=== PATIENT | female | born 1955 | race African-American/Black ===

== ENCOUNTER 2016-06-28 17:09 | Emergency (ER) | payer OTHER ==
[~2016-06-28] VITALS: Ht 162.6 cm; Wt 104.3 kg
[2016-06-28 17:16] VITALS: BP 185/101
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
[2016-06-28] MEDS ORDERED: ACETAMINOPHEN 500 MG TABLET PO ONE (18:45)
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
== END 2016-06-28 19:35 | disposition home or self-care (01) ==
LOC: ER 18:43
DX: S13.4XXA Sprain of ligaments of cervical spine, initial encounter (principal); S23.3XXA Sprain of ligaments of thoracic spine, initial encounter; J90 Pleural effusion, not elsewhere classified; I10 Essential (primary) hypertension; E78.00 Pure hypercholesterolemia, unspecified; E11.9 Type 2 diabetes mellitus without complications; Z90.49 Acquired absence of other specified parts of digestive tract; Z90.710 Acquired absence of both cervix and uterus; Z88.5 Allergy status to narcotic agent; V48.4XXA Person boarding or alighting a car injured in noncollision transport accident, initial encounter; Y93.89 Activity, other specified; Y99.8 Other external cause status; Y92.488 Other paved roadways as the place of occurrence of the external cause
CPT/HCPCS: 72125; 72128; 99284-25

== ENCOUNTER 2018-04-14 21:36 | Inpatient (IN) | payer MEDICARE, OTHER ==
[~2018-04-14] VITALS: Ht 162.6 cm; Wt 103.4 kg
[2018-04-14 22:27] LABS: BASO % 1 % (0-3); EOS # 0.1 x10^3/uL (0.0-0.7); EOS % 2 % (0-3); HEMOGLOBIN 9.9 g/dL (12.0-15.5); LYMPH # 0.4 x10^3/uL (1.0-4.8); LYMPH % 6 % (24-48); MEAN CORPUSCULAR HEMOGLOBIN 29 pg (25-35); MEAN CORPUSCULAR HGB CONC 33 g/dL (31-37); MEAN CORPUSCULAR VOLUME 88 fL (79-100); MONO # 0.5 x10^3/uL (0.0-1.1); MONO % 7 % (0-9); NEUT # 5.8 x10^3uL (1.8-7.7); NEUT % 85 % (31-73); PLATELET COUNT 171 x10^3/uL (140-400); RED BLOOD COUNT 3.43 x10^6/uL (3.50-5.40); RED CELL DISTRIBUTION WIDTH 18.2 % (11.5-14.5); WHITE BLOOD COUNT 6.8 x10^3/uL (4.0-11.0)
[2018-04-14] MEDS ORDERED: IV NORMAL SALINE 500ML BAG 500 ML IV ONE (22:30)
[2018-04-14] MEDS ORDERED: LIDOCAINE/EPI/TETRACAINE TOPICAL GEL 3 ML. TP ONE (22:30)
[2018-04-14] MEDS ORDERED: ACETAMINOPHEN 500 MG TABLET PO ONE (22:30)
--- NOTE | 2018-04-14 23:19 | RAD ---
CHEST AP ONLY History: cough, fever Comparison: November 08, 2006 Findings: Single view of the chest is submitted. There is chronic unchanged blunting of the right costophrenic sulcus. There is no new infiltrate, pleural fluid, pneumothorax. Heart size is stable, within normal limits. Impression: 1. No acute radiographic abnormality is identified. Electronically signed by: Reymundo Padilla MD (04/14/2018 11:16 PM) [facility]
--- NOTE | 2018-04-14 23:23 | PHYS DOC ---
Past Medical History Past Medical History: Anxiety, Diabetes-Type II, High Cholesterol, Hypertension , Kidney Infection Additional Past Medical Histor: KIDNEY DISEASE (LEONIDES RODRIGUEZ APRN) Past Surgical History: Appendectomy, Cholecystectomy, Hysterectomy Additional Past Surgical Histo: RIGHT BREAST CA W/ LUMPECTOMY, RIGHT LUNG SX FOR TUMOR (LEONIDES RODRIGUEZ APRN) Alcohol Use: Rarely Drug Use: None (LEONIDES RODRIGUEZ APRN) Adult General Chief Complaint Chief Complaint: DIALYSIS PROBLEM HPI HPI 62-year-old female presents to ER via EMS from her dialysis center. Patient had had dialysis and after her dialysis shunt was de-accessed patient had continued bleeding at the site. Staff had applied direct pressure for approximately 2 hours however her bleeding continued so patient was sent to the ER for evaluation. Pt reports she has had some dizziness over past couple of hours. She reports she has had PUENTE denies vision changes, eye pain, or tinnitus. She is on daily Coumadin. Pt has 100.6 temp at triage- she reports in past 2 days she has had intermittent fever, nonprod. cough, and generalized fatigue. She reports when she has had fever she has had intermittent PUENTE. She denies urinary sxs. (LEONIDES RODRIGUEZ APRN) Review of Systems Review of Systems Constitutional: Reports fever/chills and generalized fatigue for past 2 days Eyes: Denies change in visual acuity, redness, or eye pain [] HENT: Denies nasal congestion or sore throat [] Respiratory: Denies shortness of breath. Reports nonprod. cough Cardiovascular: Denies CP/palpitations GI: Denies abdominal pain, nausea, vomiting, bloody stools or diarrhea [] : Denies dysuria or hematuria [] Musculoskeletal: Denies back/neck pain or joint pain [] Integument: Denies rash or skin lesions [] Neurologic: Denies focal weakness or sensory changes. Reports diffuse PUENTE with dizziness during position changes Endocrine: Denies polyuria or polydipsia [] All other systems were reviewed and found to be within normal limits, except as documented in this note. (LEONIDES RODRIGUEZ APRN) Current Medications Current Medications Current Medications Medications (Trade) Dose Ordered Sig/Kathleen Start Time Stop Time Status Last Admin Dose Admin Acetaminophen (Tylenol) 1,000 mg 1X ONCE 04/14/18 22:30 04/14/18 22:31 DC 04/14/18 22:14 1,000 MG Lidocaine/ Epinephrine (Let Topical) 3 ml 1X ONCE 04/14/18 22:30 04/14/18 22:31 DC 04/14/18 22:14 3 ML Sodium Chloride 500 ml @ 500 mls/hr 1X ONCE 04/14/18 22:30 04/14/18 23:29 DC 04/14/18 22:51 500 MLS/HR (JESSICA SALCEDO DO) Allergies Allergies Allergies Coded Allergies Type Severity Reaction Last Updated Verified oxycodone Allergy Intermediate Itching 06/28/16 Yes (JESSICA SALCEDO DO) Physical Exam Physical Exam Constitutional: Well developed, well nourished, no acute distress, non-toxic appearance. Fatigued appearance. Clear speech and answering questions appropr. HENT: Normocephalic, atraumatic, bilateral ears normal, mucous membranes pink/ dry, mild pharyngeal erythema without swelling, no oral exudates, nose normal. [ ] Eyes: PERRLA, EOMI, conjunctiva normal, no discharge. [] Neck: Normal range of motion, no tenderness- no nuchal rigidity, supple, no stridor. [] Cardiovascular: Heart rate regular rhythm, no murmur [] Lungs & Thorax: Bilateral breath sounds clear to auscultation- diminished in bases. Resp. equal/nonlabored Abdomen: Bowel sounds normal, soft/obese- no distention/rigidity; no tenderness Skin: Warm, dry, no erythema, no rash. [] Back: No tenderness, no CVA tenderness. Full ROM Extremities: No tenderness, no cyanosis, no clubbing, ROM intact, no edema. Dialysis fistula lt upper arm with active bleeding at site- palp. thrill at site. 2+ radial bilat. Neurologic: Alert and oriented X 3, normal motor function, normal sensory function, no focal deficits noted. [] Psychologic: Affect normal, judgement normal, mood normal. [] (REFFITT,LEONIDES Trejo APRN) Physical Exam Constitutional: Well developed, well nourished, no acute distress Extremities: AV fistula to left upper arm, positive thrill, small anterior active bleeding from HD puncture site, compressible. (JESSICA SALCEDO DO) Current Patient Data Vital Signs Vital Signs Date Time Temp Pulse Resp B/P (MAP) Pulse Ox O2 Delivery O2 Flow Rate FiO2 04/14/18 21:44 107 155/74 (101) Room Air 04/14/18 21:36 100.6 20 91 100.6 (JESSICA SALCEDO DO) Lab Values Laboratory Tests Test 04/14/18 22:20 White Blood Count 6.8 x10^3/uL (4.0-11.0) Red Blood Count 3.43 x10^6/uL (3.50-5.40) L Hemoglobin 9.9 g/dL (12.0-15.5) L Hematocrit 30.0 % (36.0-47.0) L Mean Corpuscular Volume 88 fL (79-100) Mean Corpuscular Hemoglobin 29 pg (25-35) Mean Corpuscular Hemoglobin Concent 33 g/dL (31-37) Red Cell Distribution Width 18.2 % (11.5-14.5) H Platelet Count 171 x10^3/uL (140-400) Neutrophils (%) (Auto) 85 % (31-73) H Lymphocytes (%) (Auto) 6 % (24-48) L Monocytes (%) (Auto) 7 % (0-9) Eosinophils (%) (Auto) 2 % (0-3) Basophils (%) (Auto) 1 % (0-3) Neutrophils # (Auto) 5.8 x10^3uL (1.8-7.7) Lymphocytes # (Auto) 0.4 x10^3/uL (1.0-4.8) L Monocytes # (Auto) 0.5 x10^3/uL (0.0-1.1) Eosinophils # (Auto) 0.1 x10^3/uL (0.0-0.7) Basophils # (Auto) 0.0 x10^3/uL (0.0-0.2) Prothrombin Time 26.0 SEC (11.7-14.0) H Prothrombin Time INR 2.4 (0.8-1.1) H PTT 39 SEC (24-38) H Laboratory Tests 04/14/18 22:20 (JESSICA SALCEDO DO) EKG EKG [] (LEONIDES RODRIGUEZ APRN) Radiology/Procedures Radiology/Procedures PROCEDURE: CHEST AP ONLY CHEST AP ONLY History: cough, fever Comparison: November 08, 2006 Findings: Single view of the chest is submitted. There is chronic unchanged blunting of the right costophrenic sulcus. There is no new infiltrate, pleural fluid, pneumothorax. Heart size is stable, within normal limits. Impression: 1. No acute radiographic abnormality is identified. Electronically signed by: Vernon Yu MD (04/14/2018 11:16 PM) [facility] DICTATED and SIGNED BY: VERNON YU MD DATE: 04/14/18 8289 (REFFITTLEONIDES APRN) Course & Med Decision Making Course & Med Decision Making Pertinent Labs and Imaging studies reviewed. (See chart for details) On arrival pt had active bleeding from lt medial side of mid upper arm at her dialysis fistula site. Dr Salcedo was at bedside and direct pressure was applied for 10-15 minutes. With ongoing bleeding following direct pressure- a VPad was applied to site with pressure drsg and again direct pressure was applied. Site continued to bleed after another approx. 10-15 pressure application. After those attempts unsuccessful for stopping the active bleeding 1cc of LET was applied to another VPad and initial drsg was removed the new pad with LET was applied again with a pressure drsg and direct pressure for approx. 10 min. After this 10 minutes drsg remained dry with no blood soaking thru. Fistula clamp was applied and pt was monitored closely. Pt had c/o PUENTE and was found to have temp. of 100.6 on arrival. She reported flu like illness for past 2 days with fatigue, nonprod. cough, fever, and intermittent PUENTE. She denied CP/SOA/abd pain or N/V/D. She was given dose of tylenol. She had reported while at dialysis she had some intermittent dizziness and felt more fatigued. She has had no confusion or change in MS while in ER. Radial pulse remained 2+ bilat. with no swelling in extremities. With pt having fever and feeling fatigue/dizzy - IV was started and labs were drawn. With cough complaint chest was obtained. 2305: On reevaluation patient has had no bleeding through the dressing after 15min. so clamp was removed from dsrg site and pressure wrap was removed to assess site. Small amt of dried blood was on VPad- assessed under edges of VPad with no findings of skin discoloration or bleeding with removal of pressure wrap. Gauze was placed on top of VPad and Coban wrap applied. Pt has 2+ radial bilat. She remains A&Ox3 and reports with PO fluids and tylenol she is feeling better. Pt was neg. for flu. Chest xray with no acute findings. Labs with H&H at 9.9/30.0- no previous results in pt's records. INR 2.4. Although bleeding has stopped discussed admission for further monitoring- pt lives alone and although does feel sxs have improved since receiving flds/tylenol she does continue to feel fatigued. She is denying dizziness currently and has been ambulatory to bathroom with steady gait. She reports PUENTE significantly improved. Will admit to hospitalist services for further care/monitoring and repeat labs in morning. (LEONIDES RODRIGUEZ APRN) Dragon Disclaimer Dragon Disclaimer This electronic medical record was generated, in whole or in part, using a voice recognition dictation system. (LEONIDES RODRIGUEZ APRN) Departure Departure Impression: Primary Impression: Bleeding from dialysis shunt Additional Impression: Fever Disposition: ADMITTED INPATIENT Admitting Physician: Other (Dr. Murphy) (LEONIDES RODRIGUEZ APRN) Condition: STABLE Referrals: UNKNOWN PCP NAME (PCP) Scripts Oseltamivir Phosphate (TAMIFLU) 30 Mg Capsule 30 MG PO QMWF for INFLUENZA A for 5 Days, #5 CAP Take only after dialysis every other day Prov: BRUCE PARK MD 04/15/18 Attending Signature Attending Signature I have personally interviewed and examined the patient. All charts, labs, and imaging studies were reviewed. I agree with the PA/CONFERENCE DIRECTOR's findings, exam, and plan. (JESSICA SALCEDO DO) Problem Qualifiers LEONIDES RODRIGUEZ APRN Apr 14, 2018 23:23 JESSICA SALCEDO DO Apr 16, 2018 03:39
[2018-04-14 23:29] LABS: CREATININE 2.6 mg/dL (0.6-1.0); GFR 22.6; POTASSIUM 3.7 mmol/L (3.5-5.1)
[2018-04-14] MEDS ORDERED: fentaNYL PF VIAL 100 MCG/2 ML VIAL IV PRN (23:30)
[2018-04-14 23:43] LABS: ALBUMIN 3.3 g/dL (3.4-5.0); ALBUMIN/GLOBULIN RATIO 0.8 (1.0-1.7); TOTAL BILIRUBIN 0.9 mg/dL (0.2-1.0); TOTAL PROTEIN 7.2 g/dL (6.4-8.2)
[2018-04-14 23:53] LABS: INFLUENZA A PATIENT NEGATIVE (NEGATIVE); INFLUENZA B PATIENT NEGATIVE (NEGATIVE)
[2018-04-15] VITALS (7 sets, daily range): BP systolic 106–149; BP diastolic 54–79
[2018-04-15] MEDS ORDERED: BENZONATATE 100 MG CAPSULE. PO ONE (01:00)
[2018-04-15] MEDS ORDERED: WARF7.5T48 PO (03:20)
[2018-04-15] MEDS ORDERED: INSU100C SQ (03:20)
[2018-04-15] MEDS ORDERED: ASPI-630 PO (03:20)
[2018-04-15] MEDS ORDERED: RENAPLEX PO (03:20)
[2018-04-15] MEDS ORDERED: INSU100I13 SQ (03:20)
[2018-04-15] MEDS ORDERED: CARV12.511 PO (03:20)
[2018-04-15] MEDS ORDERED: ATOR40TA59 PO (03:20)
[2018-04-15] MEDS ORDERED: ONDANSETRON PF 4 MG/2 ML VIAL. IV PRN (03:30)
[2018-04-15] MEDS ORDERED: DEXTROSE 50% 25 GM / 50ML DISP.SYRIN. IV PRN (03:30)
[2018-04-15] MEDS: guaiFENesin DM 200MG/20MG 10 ML SYRUP PO PRN ×2 (03:31→13:35)
--- NOTE | 2018-04-15 03:38 | NUR ---
arrived to unit room 438 at 0100 from ED , admit care done, no bleeding noted ta left upper arm AV shunt noted at this time. Persistent dry cough noted, Dr Murphy notified with new order made. Pt informed of new order and educated on new meds done, pt verbalized understanding to poc.
[2018-04-15 05:42] LABS: BASO % 1 % (0-3); EOS # 0.1 x10^3/uL (0.0-0.7); EOS % 2 % (0-3); LYMPH # 0.5 x10^3/uL (1.0-4.8); LYMPH % 9 % (24-48); MEAN CORPUSCULAR HEMOGLOBIN 28 pg (25-35); MEAN CORPUSCULAR HGB CONC 32 g/dL (31-37); MEAN CORPUSCULAR VOLUME 87 fL (79-100); MONO # 0.6 x10^3/uL (0.0-1.1); MONO % 10 % (0-9); NEUT # 4.9 x10^3uL (1.8-7.7); NEUT % 79 % (31-73); PLATELET COUNT 156 x10^3/uL (140-400); RED CELL DISTRIBUTION WIDTH 18.4 % (11.5-14.5); WHITE BLOOD COUNT 6.1 x10^3/uL (4.0-11.0)
[2018-04-15 06:07] LABS: CALCIUM 8.3 mg/dL (8.5-10.1); CREATININE 3.2 mg/dL (0.6-1.0); GFR 17.8; POTASSIUM 4.3 mmol/L (3.5-5.1)
--- NOTE | 2018-04-15 08:47 | PDOC1 ---
History and Physical Date of Admission Date of Admission DATE: 04/15/18 TIME: 08:41 Identification/Chief Complaint Chief Complaint Left dialysis shunt malfunction Source Source: Caregiver, Chart review, Patient History of Present Illness History of Present Illness 62-year-old female presents to ER via EMS from her dialysis center. Patient had had dialysis and after her dialysis shunt was reaccessed patient had continued bleeding at the site. Staff had applied direct pressure for approximately 2 hours however her bleeding continued so patient was sent to the ER for evaluation. Pt reports she has had some dizziness over past couple of hours. She reports she has had PUENTE denies vision changes, eye pain, or tinnitus. She is on daily Coumadin. Pt has 100.6 temp at triage- she reports in past 2 days she has had intermittent fever, nonprod. cough, and generalized fatigue. She reports when she has had fever she has had intermittent PUENTE. She denies urinary sxs. Fistula clamp was applied and pt was monitored closely. Pt had c/o PUENTE and was found to have temp. of 100.6 on arrival. She reported flu like illness for past 2 days with fatigue, nonprod. cough, fever, and intermittent PUENTE. She denied CP/ SOA/abd pain or N/V/D. She was given dose of tylenol. She had reported while at dialysis she had some intermittent dizziness and felt more fatigued. She has had no confusion or change in MS while in ER. Radial pulse remained 2+ bilat. with no swelling in extremities. With pt having fever and feeling fatigue/dizzy - IV was started and labs were drawn. With cough complaint chest was obtained. On reevaluation patient has had no bleeding through the dressing after 15min. so clamp was removed from dsrg site and pressure wrap was removed to assess site. Small amt of dried blood was on VPad- assessed under edges of VPad with no findings of skin discoloration or bleeding with removal of pressure wrap. Gauze was placed on top of VPad and Coban wrap applied. Pt has 2+ radial bilat. She remains A&Ox3 and reports with PO fluids and tylenol she is feeling better. Pt was neg. for flu. Chest xray with no acute findings. Labs with H&H at 9.9/ 30.0 INR 2.4 She still has fever this morning 100.7F and relates to me she had sudden onset symptoms 48 hours ago of myalgias and had a fever of 100.6F at home with congestion, cough, coryza. Past Medical History Cardiovascular: HTN GI: No pertinent hx Heme/Onc: Anemia NOS Hepatobiliary: No pertinent hx Psych: No pertinent hx Rheumatologic: No pertinent hx Infectious disease: No pertinent hx ENT: No pertinent hx Renal/: Chronic renal failure Endocrine: No pertinent hx Dermatology: No pertinent hx Past Surgical History Past Surgical History: Other (left AV shunt) Family History Family History: Hypertension Social History Smoke: No ALCOHOL: none Drugs: None Current Medications Current Medications Current Medications Acetaminophen (Tylenol) 1,000 mg 1X ONCE PO Last administered on 04/14/18 22: 14; Start 04/14/18 at 22:30; Stop 04/14/18 at 22:31; Status DC Lidocaine/ Epinephrine (Let Topical) 3 ml 1X ONCE TP Last administered on 22:14; Start 04/14/18 at 22:30; Stop 04/14/18 at 22:31; Status DC Sodium Chloride 500 ml @ 500 mls/hr 1X ONCE IV Last administered on 04/14/18at 22:51; Start 04/14/18 at 22:30; Stop 04/14/18 at 23:29; Status DC Fentanyl Citrate (Fentanyl 2ml Vial) 25 mcg PRN Q3HRS PRN IV SEVERE PAIN; Start 04/14/18 at 23:30; Stop 04/15/18 at 23:29 Acetaminophen (Tylenol) 650 mg PRN Q4HRS PRN PO FEVER; Start 04/14/18 at 23:30; Stop 04/15/18 at 23:29 Benzonatate (Tessalon Perle) 100 mg 1X ONCE PO Last administered on 04/15/18at 02:14; Start 04/15/18 at 01:00; Stop 04/15/18 at 01:01; Status DC Guaifenesin (Robitussin Dm) 10 ml PRN Q4HRS PRN PO COUGH 1ST CHOICE Last administered on 04/15/18 03:31; Start 04/15/18 at 03:30 Ondansetron HCl (Zofran) 4 mg PRN Q6HRS PRN IV NAUSEA/VOMITING 1ST CHOICE Last administered on 04/15/18at 03:31; Start 04/15/18 at 03:30 Insulin Human Lispro (HumaLOG) 0-7 UNITS TIDWMEALS SQ ; Start 04/15/18 at 08:00 Dextrose (Dextrose 50%-Water Syringe) 12.5 gm PRN Q15MIN PRN IV SEE COMMENTS; Start 04/15/18 at 03:30 Active Scripts Active Reported Carvedilol (Carvedilol) 12.5 Mg Tablet 12.5 Mg PO BIDWMEALS Humalog (Insulin Lispro) 100 Unit/1 Ml Cartridge 10 Unit SQ TIDWMEALS [Renaplex 1 tab ] Tab PO DAILY PRN Aspirin 81 Mg Tab.chew 1 Tab PO DAILY Lantus Solostar (Insulin Glargine,Hum.rec.anlog) 100 Unit/1 Ml Insuln.pen 24 Unit SQ QHS Atorvastatin Calcium 40 Mg Tablet 1 Tab PO QHS Coumadin (Warfarin Sodium) 7.5 Mg Tablet 2 Tab PO DAILY Allergies Allergies: Coded Allergies: oxycodone (Verified Allergy, Intermediate, Itching, 06/28/16) codeine (Verified Allergy, Mild, nausea, 04/15/18) ROS General: YES: Fatigue, Malaise; No: Chills, Night Sweats, Appetite, Other PSYCHOLOGICAL ROS: No: Anxiety, Behavioral Disorder, Concentration difficultie , Decreased libido, Depression, Disorientation, Hallucinations, Hostility, Irritablity, Memory difficulties, Mood Swings, Obsessive thoughts, Physical abuse, Sexual abuse, Sleep disturbances, Suicidal ideation, Other Eyes: No Blurry vision, No Decreased vision, No Double vision, No Dry eyes, No Excessive tearing, No Eye Pain, No Itchy Eyes, No Loss of vision, No Photophobia , No Scotomata, No Uses contacts, No Uses glasses, No Other HEENT: No: Heacaches, Visual Changes, Hearing change, Nasal congestion, Nasal discharge, Oral lesions, Sinus pain, Sore Throat, Epistaxis, Sneezing, Snoring, Tinnitus, Vertigo, Vocal changes, Other ALLERGY AND IMMUNOLOGY: No: Hives, Insect Bite Sensitivity, Itchy/Watery Eyes, Nasal Congestion, Post Nasal Drip, Seasonal Allergies, Other Hematological and Lymphatic: No: Bleeding Problems, Blood Clots, Blood Transfusions, Brusing, Night Sweats, Pallor, Swollen Lymph Nodes, Other ENDOCRINE: No: Breast Changes, Galactorrhea, Hair Pattern Changes, Hot Flashes , Malaise/lethargy, Mood Swings, Palpitations, Polydipsia/polyuria, Skin Changes , Temperature Intolerance, Unexpected Weight Changes, Other Breast: No New/Changing Breast Lumps, No Nipple changes, No Nipple discharge, No Other Respiratory: No: Cough, Hemoptysis, Orthopnea, Pleuritic Pain, Shortness of breath, SOB with excertion, Sputum Changes, Stridor, Tachypnea, Wheezing, Other Cardiovascular: No Chest Pain, No Palpitations, No Orthopnea, No Paroxysmal Noc. Dyspnea, No Edema, No Lt Headedness, No Other Gastrointestinal: No Nausea, No Vomiting, No Abdominal Pain, No Diarrhea, No Constipation, No Melena, No Hematochezia, No Other Genitourinary: No Dysuria, No Frequency, No Incontinence, No Hematuria, No Retention, No Discharge, No Urgency, No Pain, No Flank Pain, No Other, No , No , No , No , No , No , No Musculoskeletal: No Gait Disturbance, No Joint Pain, No Joint Stiffness, No Joint Swelling, No Muscle Pain, No Muscular Weakness, No Pain In:, No Swelling In:, No Other Neurological: No Behavorial Changes, No Bowel/Bladder ControlChng, No Confusion , No Dizziness, No Gait Disturbance, No Headaches, No Impaired Coord/balance, No Memory Loss, No Numbness/Tingling, No Seizures, No Speech Problems, No Tremors, No Visual Changes, No Weakness, No Other Skin: No Dry Skin, No Eczema, No Hair Changes, No Lumps, No Mole Changes, No Mottling, No Nail Changes, No Pruritus, No Rash, No Skin Lesion Changes, No Other, No Acne Physical Exam General: Alert, Oriented X3, Cooperative, No acute distress HEENT: Atraumatic, PERRLA, EOMI, Mucous membr. moist/pink Lungs: Clear to auscultation, Normal air movement Heart: S1S2, RRR, no gallops, no murmurs Abdomen: Normal bowel sounds, Soft, No tenderness, No hepatosplenomegaly, No masses Extremities: No clubbing, No cyanosis, No edema, Normal pulses, No tenderness/ swelling, Other (LUE with wrap, good bruit) Skin: No rashes, No breakdown, No significant lesion Neuro: Normal gait, Normal speech, Strength at 5/5 X4 ext, Normal tone, Sensation intact, Cranial nerves 3-12 NL, Reflexes 2+ Psych/Mental Status: Mental status NL, Mood NL Vitals Vitals Vital Signs Date Time Temp Pulse Resp B/P (MAP) Pulse Ox O2 Delivery O2 Flow Rate FiO2 04/15/18 03:48 Room Air 04/15/18 03:19 100.7 95 18 149/79 (102) 95 100.7 Labs Labs Laboratory Tests Test 04/14/18 22:20 04/14/18 23:05 04/14/18 23:15 04/15/18 05:23 White Blood Count 6.8 x10^3/uL (4.0-11.0) 6.1 x10^3/uL (4.0-11.0) Red Blood Count 3.43 x10^6/uL (3.50-5.40) 3.20 x10^6/uL (3.50-5.40) Hemoglobin 9.9 g/dL (12.0-15.5) 9.0 g/dL (12.0-15.5) Hematocrit 30.0 % (36.0-47.0) 28.0 % (36.0-47.0) Mean Corpuscular Volume 88 fL (79-100) 87 fL (79-100) Mean Corpuscular Hemoglobin 29 pg (25-35) 28 pg (25-35) Mean Corpuscular Hemoglobin Concent 33 g/dL (31-37) 32 g/dL (31-37) Red Cell Distribution Width 18.2 % (11.5-14.5) 18.4 % (11.5-14.5) Platelet Count 171 x10^3/uL (140-400) 156 x10^3/uL (140-400) Neutrophils (%) (Auto) 85 % (31-73) 79 % (31-73) Lymphocytes (%) (Auto) 6 % (24-48) 9 % (24-48) Monocytes (%) (Auto) 7 % (0-9) 10 % (0-9) Eosinophils (%) (Auto) 2 % (0-3) 2 % (0-3) Basophils (%) (Auto) 1 % (0-3) 1 % (0-3) Neutrophils # (Auto) 5.8 x10^3uL (1.8-7.7) 4.9 x10^3uL (1.8-7.7) Lymphocytes # (Auto) 0.4 x10^3/uL (1.0-4.8) 0.5 x10^3/uL (1.0-4.8) Monocytes # (Auto) 0.5 x10^3/uL (0.0-1.1) 0.6 x10^3/uL (0.0-1.1) Eosinophils # (Auto) 0.1 x10^3/uL (0.0-0.7) 0.1 x10^3/uL (0.0-0.7) Basophils # (Auto) 0.0 x10^3/uL (0.0-0.2) 0.0 x10^3/uL (0.0-0.2) Prothrombin Time 26.0 SEC (11.7-14.0) Prothromb Time International Ratio 2.4 (0.8-1.1) Activated Partial Thromboplast Time 39 SEC (24-38) Sodium Level 139 mmol/L (136-145) 140 mmol/L (136-145) Potassium Level 3.7 mmol/L (3.5-5.1) 4.3 mmol/L (3.5-5.1) Chloride Level 98 mmol/L (98-107) 98 mmol/L (98-107) Carbon Dioxide Level 34 mmol/L (21-32) 34 mmol/L (21-32) Anion Gap 7 (6-14) 8 (6-14) Blood Urea Nitrogen 25 mg/dL (7-20) 30 mg/dL (7-20) Creatinine 2.6 mg/dL (0.6-1.0) 3.2 mg/dL (0.6-1.0) Estimated GFR (Cockcroft-Gault) 22.6 17.8 BUN/Creatinine Ratio 10 (6-20) Glucose Level 255 mg/dL (70-99) 218 mg/dL (70-99) Calcium Level 9.0 mg/dL (8.5-10.1) 8.3 mg/dL (8.5-10.1) Total Bilirubin 0.9 mg/dL (0.2-1.0) Aspartate Amino Transf (AST/SGOT) 15 U/L (15-37) Alanine Aminotransferase (ALT/SGPT) 22 U/L (14-59) Alkaline Phosphatase 94 U/L (46-116) Total Protein 7.2 g/dL (6.4-8.2) Albumin 3.3 g/dL (3.4-5.0) Albumin/Globulin Ratio 0.8 (1.0-1.7) Influenza Type A Antigen Negative (NEGATIVE) Influenza Type B Antigen Negative (NEGATIVE) Test 04/15/18 08:18 Glucose (Fingerstick) 191 mg/dL (70-99) Laboratory Tests Test 04/14/18 22:20 04/14/18 23:05 04/14/18 23:15 04/15/18 05:23 White Blood Count 6.8 x10^3/uL (4.0-11.0) 6.1 x10^3/uL (4.0-11.0) Red Blood Count 3.43 x10^6/uL (3.50-5.40) 3.20 x10^6/uL (3.50-5.40) Hemoglobin 9.9 g/dL (12.0-15.5) 9.0 g/dL (12.0-15.5) Hematocrit 30.0 % (36.0-47.0) 28.0 % (36.0-47.0) Mean Corpuscular Volume 88 fL (79-100) 87 fL (79-100) Mean Corpuscular Hemoglobin 29 pg (25-35) 28 pg (25-35) Mean Corpuscular Hemoglobin Concent 33 g/dL (31-37) 32 g/dL (31-37) Red Cell Distribution Width 18.2 % (11.5-14.5) 18.4 % (11.5-14.5) Platelet Count 171 x10^3/uL (140-400) 156 x10^3/uL (140-400) Neutrophils (%) (Auto) 85 % (31-73) 79 % (31-73) Lymphocytes (%) (Auto) 6 % (24-48) 9 % (24-48) Monocytes (%) (Auto) 7 % (0-9) 10 % (0-9) Eosinophils (%) (Auto) 2 % (0-3) 2 % (0-3) Basophils (%) (Auto) 1 % (0-3) 1 % (0-3) Neutrophils # (Auto) 5.8 x10^3uL (1.8-7.7) 4.9 x10^3uL (1.8-7.7) Lymphocytes # (Auto) 0.4 x10^3/uL (1.0-4.8) 0.5 x10^3/uL (1.0-4.8) Monocytes # (Auto) 0.5 x10^3/uL (0.0-1.1) 0.6 x10^3/uL (0.0-1.1) Eosinophils # (Auto) 0.1 x10^3/uL (0.0-0.7) 0.1 x10^3/uL (0.0-0.7) Basophils # (Auto) 0.0 x10^3/uL (0.0-0.2) 0.0 x10^3/uL (0.0-0.2) Prothrombin Time 26.0 SEC (11.7-14.0) Prothromb Time International Ratio 2.4 (0.8-1.1) Activated Partial Thromboplast Time 39 SEC (24-38) Sodium Level 139 mmol/L (136-145) 140 mmol/L (136-145) Potassium Level 3.7 mmol/L (3.5-5.1) 4.3 mmol/L (3.5-5.1) Chloride Level 98 mmol/L (98-107) 98 mmol/L (98-107) Carbon Dioxide Level 34 mmol/L (21-32) 34 mmol/L (21-32) Anion Gap 7 (6-14) 8 (6-14) Blood Urea Nitrogen 25 mg/dL (7-20) 30 mg/dL (7-20) Creatinine 2.6 mg/dL (0.6-1.0) 3.2 mg/dL (0.6-1.0) Estimated GFR (Cockcroft-Gault) 22.6 17.8 BUN/Creatinine Ratio 10 (6-20) Glucose Level 255 mg/dL (70-99) 218 mg/dL (70-99) Calcium Level 9.0 mg/dL (8.5-10.1) 8.3 mg/dL (8.5-10.1) Total Bilirubin 0.9 mg/dL (0.2-1.0) Aspartate Amino Transf (AST/SGOT) 15 U/L (15-37) Alanine Aminotransferase (ALT/SGPT) 22 U/L (14-59) Alkaline Phosphatase 94 U/L (46-116) Total Protein 7.2 g/dL (6.4-8.2) Albumin 3.3 g/dL (3.4-5.0) Albumin/Globulin Ratio 0.8 (1.0-1.7) Influenza Type A Antigen Negative (NEGATIVE) Influenza Type B Antigen Negative (NEGATIVE) Test 04/15/18 08:18 Glucose (Fingerstick) 191 mg/dL (70-99) Images Images CXR - No acute radiographic abnormality is identified. VTE Prophylaxis Ordered VTE Prophylaxis Devices: No VTE Pharmacological Prophylaxi: Yes Assessment/Plan Assessment/Plan A/P: Bleeding AV fistula - seems to have stopped, no need to consult vascular surgery. 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 She has the flu. I will start 30m tamiflu to be given post dialysis every other day and confirm with another rapid flu test ESRD on HD - will consult nephrology. Normally dialyzes [facility], will go outpatient if she leaves today or tomorrow FEN - Renal Diet PPX - heparin FULL CODE Inpatient for AV fistula bleeding and flu like symptoms. She wants to leave, but at least needs flu treatment and precautions in place BRUCE PARK MD Apr 15, 2018 08:46
[2018-04-15] MEDS: INSULIN LISPRO 300 UNITS/3 ML INSULN.PEN. SQ SCH ×3 (08:52→17:17)
--- NOTE | 2018-04-15 10:43 | NUR ---
SW following. Discussed with RN, pt lives alone, with daughter nearby. Pt has T, TH, SA dialysis, follows nephrology at . RN advised no SW needs, possible discharge home today or tomorrow (04/16/18). SW will continue to follow.
--- NOTE | 2018-04-15 11:37 | PDOC2 ---
CONSULT Date of Consult Date of Consult DATE: 04/15/18 TIME: 11:31 Reason for Consult Reason for Consult: ESRD Identification/Chief Complaint Chief Complaint Bleeding from AVF Source Source: Chart review, Patient History of Present Illness Reason for Visit: 62-year-old AAF female ESRD on HD TTS ([facility]) presented to ER via EMS from her dialysis center. Patient had dialysis and after her dialysis when the needle was removed patient had continued bleeding at the site. She reports that she always bleeds as she is on coumadin but the after direct pressure for approximately 2 hours she continued to bleed so she was sent to the ER for evaluation. Pt reports she has had some dizziness over past couple of hours. She reports she has had PUENTE denies vision changes, eye pain, or tinnitus. She is on daily Coumadin. Pt has 100.6 temp at triage- she reports in past 2 days she has had intermittent fever, nonprod. cough, and generalized fatigue. She reports when she has had fever she has had intermittent PUENTE. She denies urinary sxs. She states she completed the dialysis treatment , currently no complaints. Has RRF, have been on HD for 1 year and 5 months She states she prefers to back to her HD unit tomorrow Current Medications Current Medications Current Medications Acetaminophen (Tylenol) 1,000 mg 1X ONCE PO Last administered on 04/14/18at 22: 14; Start 04/14/18 at 22:30; Stop 04/14/18 at 22:31; Status DC Lidocaine/ Epinephrine (Let Topical) 3 ml 1X ONCE TP Last administered on at 22:14; Start 04/14/18 at 22:30; Stop 04/14/18 at 22:31; Status DC Sodium Chloride 500 ml @ 500 mls/hr 1X ONCE IV Last administered on 04/14/18at 22:51; Start 04/14/18 at 22:30; Stop 04/14/18 at 23:29; Status DC Fentanyl Citrate (Fentanyl 2ml Vial) 25 mcg PRN Q3HRS PRN IV SEVERE PAIN; Start 04/14/18 at 23:30; Stop 04/15/18 at 23:29 Acetaminophen (Tylenol) 650 mg PRN Q4HRS PRN PO FEVER; Start 04/14/18 at 23:30; Stop 04/15/18 at 23:29 Benzonatate (Tessalon Perle) 100 mg 1X ONCE PO Last administered on 04/15/18at 02:14; Start 04/15/18 at 01:00; Stop 04/15/18 at 01:01; Status DC Guaifenesin (Robitussin Dm) 10 ml PRN Q4HRS PRN PO COUGH 1ST CHOICE Last administered on 04/15/18at 03:31; Start 04/15/18 at 03:30 Ondansetron HCl (Zofran) 4 mg PRN Q6HRS PRN IV NAUSEA/VOMITING 1ST CHOICE Last administered on 04/15/18at 03:31; Start 04/15/18 at 03:30 Insulin Human Lispro (HumaLOG) 0-7 UNITS TIDWMEALS SQ Last administered on at 08:52; Start 04/15/18 at 08:00 Dextrose (Dextrose 50%-Water Syringe) 12.5 gm PRN Q15MIN PRN IV SEE COMMENTS; Start 04/15/18 at 03:30 Oseltamivir Phosphate (Tamiflu) 30 mg QMWF PO ; Start 04/15/18 at 16:00; Stop 12/29 at 15:59 Active Scripts Active Reported Carvedilol (Carvedilol) 12.5 Mg Tablet 12.5 Mg PO BIDWMEALS Humalog (Insulin Lispro) 100 Unit/1 Ml Cartridge 10 Unit SQ TIDWMEALS [Renaplex 1 tab ] Tab PO DAILY PRN Aspirin 81 Mg Tab.chew 1 Tab PO DAILY Lantus Solostar (Insulin Glargine,Hum.rec.anlog) 100 Unit/1 Ml Insuln.pen 24 Unit SQ QHS Atorvastatin Calcium 40 Mg Tablet 1 Tab PO QHS Coumadin (Warfarin Sodium) 7.5 Mg Tablet 2 Tab PO DAILY Allergies Allergies: Coded Allergies: oxycodone (Verified Allergy, Intermediate, Itching, 06/28/16) codeine (Verified Allergy, Mild, nausea, 04/15/18) ROS Review of System As per HPI Physical Exam Physical Exam 1. No acute radiographic abnormality is identified. Vital Signs Vital Signs Date Time Temp Pulse Resp B/P (MAP) Pulse Ox O2 Delivery O2 Flow Rate FiO2 04/15/18 11:00 100.7 102 18 136/63 (87) 90 Room Air 100.7 Assessment & Plan ESRD - HD TTS ( [facility]) - Dr. Scruggs Last HD yesterday Labs stable, no indication today Pt would like to go back to her Unit for HD tomorrow Access- Lt UA shunt ? 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 Carotid arterial thrombosis - on retirement Coumadin Discussed with Pt and RN Labs Labs Laboratory Tests Test 04/14/18 22:20 04/14/18 23:05 04/14/18 23:15 04/15/18 05:23 White Blood Count 6.8 x10^3/uL (4.0-11.0) 6.1 x10^3/uL (4.0-11.0) Red Blood Count 3.43 x10^6/uL (3.50-5.40) 3.20 x10^6/uL (3.50-5.40) Hemoglobin 9.9 g/dL (12.0-15.5) 9.0 g/dL (12.0-15.5) Hematocrit 30.0 % (36.0-47.0) 28.0 % (36.0-47.0) Mean Corpuscular Volume 88 fL (79-100) 87 fL (79-100) Mean Corpuscular Hemoglobin 29 pg (25-35) 28 pg (25-35) Mean Corpuscular Hemoglobin Concent 33 g/dL (31-37) 32 g/dL (31-37) Red Cell Distribution Width 18.2 % (11.5-14.5) 18.4 % (11.5-14.5) Platelet Count 171 x10^3/uL (140-400) 156 x10^3/uL (140-400) Neutrophils (%) (Auto) 85 % (31-73) 79 % (31-73) Lymphocytes (%) (Auto) 6 % (24-48) 9 % (24-48) Monocytes (%) (Auto) 7 % (0-9) 10 % (0-9) Eosinophils (%) (Auto) 2 % (0-3) 2 % (0-3) Basophils (%) (Auto) 1 % (0-3) 1 % (0-3) Neutrophils # (Auto) 5.8 x10^3uL (1.8-7.7) 4.9 x10^3uL (1.8-7.7) Lymphocytes # (Auto) 0.4 x10^3/uL (1.0-4.8) 0.5 x10^3/uL (1.0-4.8) Monocytes # (Auto) 0.5 x10^3/uL (0.0-1.1) 0.6 x10^3/uL (0.0-1.1) Eosinophils # (Auto) 0.1 x10^3/uL (0.0-0.7) 0.1 x10^3/uL (0.0-0.7) Basophils # (Auto) 0.0 x10^3/uL (0.0-0.2) 0.0 x10^3/uL (0.0-0.2) Prothrombin Time 26.0 SEC (11.7-14.0) Prothromb Time International Ratio 2.4 (0.8-1.1) Activated Partial Thromboplast Time 39 SEC (24-38) Sodium Level 139 mmol/L (136-145) 140 mmol/L (136-145) Potassium Level 3.7 mmol/L (3.5-5.1) 4.3 mmol/L (3.5-5.1) Chloride Level 98 mmol/L (98-107) 98 mmol/L (98-107) Carbon Dioxide Level 34 mmol/L (21-32) 34 mmol/L (21-32) Anion Gap 7 (6-14) 8 (6-14) Blood Urea Nitrogen 25 mg/dL (7-20) 30 mg/dL (7-20) Creatinine 2.6 mg/dL (0.6-1.0) 3.2 mg/dL (0.6-1.0) Estimated GFR (Cockcroft-Gault) 22.6 17.8 BUN/Creatinine Ratio 10 (6-20) Glucose Level 255 mg/dL (70-99) 218 mg/dL (70-99) Calcium Level 9.0 mg/dL (8.5-10.1) 8.3 mg/dL (8.5-10.1) Total Bilirubin 0.9 mg/dL (0.2-1.0) Aspartate Amino Transf (AST/SGOT) 15 U/L (15-37) Alanine Aminotransferase (ALT/SGPT) 22 U/L (14-59) Alkaline Phosphatase 94 U/L (46-116) Total Protein 7.2 g/dL (6.4-8.2) Albumin 3.3 g/dL (3.4-5.0) Albumin/Globulin Ratio 0.8 (1.0-1.7) Influenza Type A Antigen Negative (NEGATIVE) Influenza Type B Antigen Negative (NEGATIVE) Test 04/15/18 08:18 Glucose (Fingerstick) 191 mg/dL (70-99) Laboratory Tests Test 04/14/18 22:20 04/14/18 23:05 04/14/18 23:15 04/15/18 05:23 White Blood Count 6.8 x10^3/uL (4.0-11.0) 6.1 x10^3/uL (4.0-11.0) Red Blood Count 3.43 x10^6/uL (3.50-5.40) 3.20 x10^6/uL (3.50-5.40) Hemoglobin 9.9 g/dL (12.0-15.5) 9.0 g/dL (12.0-15.5) Hematocrit 30.0 % (36.0-47.0) 28.0 % (36.0-47.0) Mean Corpuscular Volume 88 fL (79-100) 87 fL (79-100) Mean Corpuscular Hemoglobin 29 pg (25-35) 28 pg (25-35) Mean Corpuscular Hemoglobin Concent 33 g/dL (31-37) 32 g/dL (31-37) Red Cell Distribution Width 18.2 % (11.5-14.5) 18.4 % (11.5-14.5) Platelet Count 171 x10^3/uL (140-400) 156 x10^3/uL (140-400) Neutrophils (%) (Auto) 85 % (31-73) 79 % (31-73) Lymphocytes (%) (Auto) 6 % (24-48) 9 % (24-48) Monocytes (%) (Auto) 7 % (0-9) 10 % (0-9) Eosinophils (%) (Auto) 2 % (0-3) 2 % (0-3) Basophils (%) (Auto) 1 % (0-3) 1 % (0-3) Neutrophils # (Auto) 5.8 x10^3uL (1.8-7.7) 4.9 x10^3uL (1.8-7.7) Lymphocytes # (Auto) 0.4 x10^3/uL (1.0-4.8) 0.5 x10^3/uL (1.0-4.8) Monocytes # (Auto) 0.5 x10^3/uL (0.0-1.1) 0.6 x10^3/uL (0.0-1.1) Eosinophils # (Auto) 0.1 x10^3/uL (0.0-0.7) 0.1 x10^3/uL (0.0-0.7) Basophils # (Auto) 0.0 x10^3/uL (0.0-0.2) 0.0 x10^3/uL (0.0-0.2) Prothrombin Time 26.0 SEC (11.7-14.0) Prothromb Time International Ratio 2.4 (0.8-1.1) Activated Partial Thromboplast Time 39 SEC (24-38) Sodium Level 139 mmol/L (136-145) 140 mmol/L (136-145) Potassium Level 3.7 mmol/L (3.5-5.1) 4.3 mmol/L (3.5-5.1) Chloride Level 98 mmol/L (98-107) 98 mmol/L (98-107) Carbon Dioxide Level 34 mmol/L (21-32) 34 mmol/L (21-32) Anion Gap 7 (6-14) 8 (6-14) Blood Urea Nitrogen 25 mg/dL (7-20) 30 mg/dL (7-20) Creatinine 2.6 mg/dL (0.6-1.0) 3.2 mg/dL (0.6-1.0) Estimated GFR (Cockcroft-Gault) 22.6 17.8 BUN/Creatinine Ratio 10 (6-20) Glucose Level 255 mg/dL (70-99) 218 mg/dL (70-99) Calcium Level 9.0 mg/dL (8.5-10.1) 8.3 mg/dL (8.5-10.1) Total Bilirubin 0.9 mg/dL (0.2-1.0) Aspartate Amino Transf (AST/SGOT) 15 U/L (15-37) Alanine Aminotransferase (ALT/SGPT) 22 U/L (14-59) Alkaline Phosphatase 94 U/L (46-116) Total Protein 7.2 g/dL (6.4-8.2) Albumin 3.3 g/dL (3.4-5.0) Albumin/Globulin Ratio 0.8 (1.0-1.7) Influenza Type A Antigen Negative (NEGATIVE) Influenza Type B Antigen Negative (NEGATIVE) Test 04/15/18 08:18 Glucose (Fingerstick) 191 mg/dL (70-99) Review All relevant outside records, renal labs, imaging studies, telemetry/EKG's were reviewed. Images Images CxR 1. No acute radiographic abnormality is identified. ROBER TOLEDO MD Apr 15, 2018 11:37
[2018-04-15] MEDS: ACETAMINOPHEN 325 MG TABLET. PO PRN ×2 (12:48→19:57)
[2018-04-15 14:15] LABS: INFLUENZA A PATIENT POSITIVE (NEGATIVE); INFLUENZA B PATIENT NEGATIVE (NEGATIVE)
[2018-04-15] MEDS ORDERED: OSELTAMIVIR 30 MG CAPSULE PO SCH (16:00)
[2018-04-15] MEDS ORDERED: OSEL30CA PO (17:09)
--- NOTE | 2018-04-15 17:14 | PDOC3 ---
Discharge Summary Visit Information Date of Admission: Apr 14, 2018 Date of Discharge: Apr 16, 2018 Admitting Diagnosis: Av fistula bleeding, Flu-like sx Final Diagnosis Av fistula bleeding, INFLUENZA A Brief Hospital Course Allergies Allergies Coded Allergies Type Severity Reaction Last Updated Verified oxycodone Allergy Intermediate Itching 06/28/16 Yes codeine Allergy Mild nausea 04/15/18 Yes Vital Signs Vital Signs Date Time Temp Pulse Resp B/P (MAP) Pulse Ox O2 Delivery O2 Flow Rate FiO2 04/15/18 15:00 99.0 94 18 106/54 (71) 94 Room Air 99.0 Lab Results Laboratory Tests Test 04/14/18 22:20 04/14/18 23:05 04/14/18 23:15 04/15/18 05:23 White Blood Count 6.8 x10^3/uL (4.0-11.0) 6.1 x10^3/uL (4.0-11.0) Red Blood Count 3.43 x10^6/uL (3.50-5.40) 3.20 x10^6/uL (3.50-5.40) Hemoglobin 9.9 g/dL (12.0-15.5) 9.0 g/dL (12.0-15.5) Hematocrit 30.0 % (36.0-47.0) 28.0 % (36.0-47.0) Mean Corpuscular Volume 88 fL (79-100) 87 fL (79-100) Mean Corpuscular Hemoglobin 29 pg (25-35) 28 pg (25-35) Mean Corpuscular Hemoglobin Concent 33 g/dL (31-37) 32 g/dL (31-37) Red Cell Distribution Width 18.2 % (11.5-14.5) 18.4 % (11.5-14.5) Platelet Count 171 x10^3/uL (140-400) 156 x10^3/uL (140-400) Neutrophils (%) (Auto) 85 % (31-73) 79 % (31-73) Lymphocytes (%) (Auto) 6 % (24-48) 9 % (24-48) Monocytes (%) (Auto) 7 % (0-9) 10 % (0-9) Eosinophils (%) (Auto) 2 % (0-3) 2 % (0-3) Basophils (%) (Auto) 1 % (0-3) 1 % (0-3) Neutrophils # (Auto) 5.8 x10^3uL (1.8-7.7) 4.9 x10^3uL (1.8-7.7) Lymphocytes # (Auto) 0.4 x10^3/uL (1.0-4.8) 0.5 x10^3/uL (1.0-4.8) Monocytes # (Auto) 0.5 x10^3/uL (0.0-1.1) 0.6 x10^3/uL (0.0-1.1) Eosinophils # (Auto) 0.1 x10^3/uL (0.0-0.7) 0.1 x10^3/uL (0.0-0.7) Basophils # (Auto) 0.0 x10^3/uL (0.0-0.2) 0.0 x10^3/uL (0.0-0.2) Prothrombin Time 26.0 SEC (11.7-14.0) Prothromb Time International Ratio 2.4 (0.8-1.1) Activated Partial Thromboplast Time 39 SEC (24-38) Sodium Level 139 mmol/L (136-145) 140 mmol/L (136-145) Potassium Level 3.7 mmol/L (3.5-5.1) 4.3 mmol/L (3.5-5.1) Chloride Level 98 mmol/L (98-107) 98 mmol/L (98-107) Carbon Dioxide Level 34 mmol/L (21-32) 34 mmol/L (21-32) Anion Gap 7 (6-14) 8 (6-14) Blood Urea Nitrogen 25 mg/dL (7-20) 30 mg/dL (7-20) Creatinine 2.6 mg/dL (0.6-1.0) 3.2 mg/dL (0.6-1.0) Estimated GFR (Cockcroft-Gault) 22.6 17.8 BUN/Creatinine Ratio 10 (6-20) Glucose Level 255 mg/dL (70-99) 218 mg/dL (70-99) Calcium Level 9.0 mg/dL (8.5-10.1) 8.3 mg/dL (8.5-10.1) Total Bilirubin 0.9 mg/dL (0.2-1.0) Aspartate Amino Transf (AST/SGOT) 15 U/L (15-37) Alanine Aminotransferase (ALT/SGPT) 22 U/L (14-59) Alkaline Phosphatase 94 U/L (46-116) Total Protein 7.2 g/dL (6.4-8.2) Albumin 3.3 g/dL (3.4-5.0) Albumin/Globulin Ratio 0.8 (1.0-1.7) Influenza Type A Antigen Negative (NEGATIVE) Influenza Type B Antigen Negative (NEGATIVE) Test 04/15/18 08:18 04/15/18 11:40 04/15/18 12:51 04/15/18 13:05 Glucose (Fingerstick) 191 mg/dL (70-99) 201 mg/dL (70-99) Lactic Acid Level 0.8 mmol/L (0.4-2.0) Influenza Type A Antigen Positive (NEGATIVE) Influenza Type B Antigen Negative (NEGATIVE) Laboratory Tests Test 04/14/18 22:20 04/14/18 23:05 04/14/18 23:15 04/15/18 05:23 White Blood Count 6.8 x10^3/uL (4.0-11.0) 6.1 x10^3/uL (4.0-11.0) Red Blood Count 3.43 x10^6/uL (3.50-5.40) 3.20 x10^6/uL (3.50-5.40) Hemoglobin 9.9 g/dL (12.0-15.5) 9.0 g/dL (12.0-15.5) Hematocrit 30.0 % (36.0-47.0) 28.0 % (36.0-47.0) Mean Corpuscular Volume 88 fL (79-100) 87 fL (79-100) Mean Corpuscular Hemoglobin 29 pg (25-35) 28 pg (25-35) Mean Corpuscular Hemoglobin Concent 33 g/dL (31-37) 32 g/dL (31-37) Red Cell Distribution Width 18.2 % (11.5-14.5) 18.4 % (11.5-14.5) Platelet Count 171 x10^3/uL (140-400) 156 x10^3/uL (140-400) Neutrophils (%) (Auto) 85 % (31-73) 79 % (31-73) Lymphocytes (%) (Auto) 6 % (24-48) 9 % (24-48) Monocytes (%) (Auto) 7 % (0-9) 10 % (0-9) Eosinophils (%) (Auto) 2 % (0-3) 2 % (0-3) Basophils (%) (Auto) 1 % (0-3) 1 % (0-3) Neutrophils # (Auto) 5.8 x10^3uL (1.8-7.7) 4.9 x10^3uL (1.8-7.7) Lymphocytes # (Auto) 0.4 x10^3/uL (1.0-4.8) 0.5 x10^3/uL (1.0-4.8) Monocytes # (Auto) 0.5 x10^3/uL (0.0-1.1) 0.6 x10^3/uL (0.0-1.1) Eosinophils # (Auto) 0.1 x10^3/uL (0.0-0.7) 0.1 x10^3/uL (0.0-0.7) Basophils # (Auto) 0.0 x10^3/uL (0.0-0.2) 0.0 x10^3/uL (0.0-0.2) Prothrombin Time 26.0 SEC (11.7-14.0) Prothromb Time International Ratio 2.4 (0.8-1.1) Activated Partial Thromboplast Time 39 SEC (24-38) Sodium Level 139 mmol/L (136-145) 140 mmol/L (136-145) Potassium Level 3.7 mmol/L (3.5-5.1) 4.3 mmol/L (3.5-5.1) Chloride Level 98 mmol/L (98-107) 98 mmol/L (98-107) Carbon Dioxide Level 34 mmol/L (21-32) 34 mmol/L (21-32) Anion Gap 7 (6-14) 8 (6-14) Blood Urea Nitrogen 25 mg/dL (7-20) 30 mg/dL (7-20) Creatinine 2.6 mg/dL (0.6-1.0) 3.2 mg/dL (0.6-1.0) Estimated GFR (Cockcroft-Gault) 22.6 17.8 BUN/Creatinine Ratio 10 (6-20) Glucose Level 255 mg/dL (70-99) 218 mg/dL (70-99) Calcium Level 9.0 mg/dL (8.5-10.1) 8.3 mg/dL (8.5-10.1) Total Bilirubin 0.9 mg/dL (0.2-1.0) Aspartate Amino Transf (AST/SGOT) 15 U/L (15-37) Alanine Aminotransferase (ALT/SGPT) 22 U/L (14-59) Alkaline Phosphatase 94 U/L (46-116) Total Protein 7.2 g/dL (6.4-8.2) Albumin 3.3 g/dL (3.4-5.0) Albumin/Globulin Ratio 0.8 (1.0-1.7) Influenza Type A Antigen Negative (NEGATIVE) Influenza Type B Antigen Negative (NEGATIVE) Test 04/15/18 08:18 04/15/18 11:40 04/15/18 12:51 04/15/18 13:05 Glucose (Fingerstick) 191 mg/dL (70-99) 201 mg/dL (70-99) Lactic Acid Level 0.8 mmol/L (0.4-2.0) Influenza Type A Antigen Positive (NEGATIVE) Influenza Type B Antigen Negative (NEGATIVE) Brief Hospital Course 62-year-old female w/ PMHx DM, HTN, carotid thrombosis who presents to ER via EMS from her dialysis center. Patient had had dialysis and after her dialysis shunt was reaccessed patient had continued bleeding at the site. Staff had applied direct pressure for approximately 2 hours however her bleeding continued so patient was sent to the ER for evaluation. Pt reports she has had some dizziness over past couple of hours. She reports she has had PUENTE denies vision changes, eye pain, or tinnitus. She is on daily Coumadin. Pt has 100.6 temp at triage- she reports in past 2 days she has had intermittent fever, nonprod. cough, and generalized fatigue. She reports when she has had fever she has had intermittent PUENTE. She denies urinary sxs. Fistula clamp was applied and pt was monitored closely. Pt had c/o PUENTE and was found to have temp. of 100.6 on arrival. She reported flu like illness for past 2 days with fatigue, nonprod. cough, fever, and intermittent PUENTE. She denied CP/ SOA/abd pain or N/V/D. She was given dose of tylenol. She had reported while at dialysis she had some intermittent dizziness and felt more fatigued. She has had no confusion or change in MS while in ER. Radial pulse remained 2+ bilat. with no swelling in extremities. With pt having fever and feeling fatigue/dizzy - IV was started and labs were drawn. With cough complaint chest was obtained. 2305: On reevaluation patient has had no bleeding through the dressing after 15min. so clamp was removed from dsrg site and pressure wrap was removed to assess site. Small amt of dried blood was on VPad- assessed under edges of VPad with no findings of skin discoloration or bleeding with removal of pressure wrap. Gauze was placed on top of VPad and Coban wrap applied. Pt has 2+ radial bilat. She remains A&Ox3 and reports with PO fluids and tylenol she is feeling better. Pt was neg. for flu. Chest xray with no acute findings. Labs with H&H at 9.9/30.0- no previous results in pt's records. INR 2.4. Although bleeding has stopped discussed admission for further monitoring- pt lives alone and although does feel sxs have improved since receiving flds/tylenol she does continue to feel fatigued. She is denying dizziness currently and has been ambulatory to bathroom with steady gait. She reports PUENTE significantly improved. On repeat flu testing she was positive for Flu A. Seen by nephrology, her bleeding definitely stopped and was discharged to f/u at dialysis at 4pm and every other day tamiflu 30mg on dialysis days. tayed last night due to some hypoxia and worsening cough improved by this morning by nebs. She wishes to dialyze here as she started having loose bowel this morning. Plan: Ok for d/c after dialysis. Likely diarrhea side effect of tamiflu. A/P: Bleeding AV fistula - seems to have stopped, no need to consult vascular surgery. 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 She has the flu. I will start 30m tamiflu to be given post dialysis every other day and confirm with another rapid flu test ESRD on HD - will consult nephrology. Normally dialyzes TuThSa, Greater than 35 minutes on discharge. She wants to leave, but at least needs flu treatment and precautions in place Discharge Information Condition at Discharge: Improved Follow Up: Weeks Disposition/Orders: D/C to Home Scheduled Aspirin (Aspirin) 81 Mg Tab.chew, 1 TAB PO DAILY for anti coag, #30 Ref 3 ( Reported) Entered as Reported by: JOSE BREWER on 04/15/18319 Last Taken: Unknown Dose on 04/14/18 Last Action: Continued on 04/16/18309 by RIVERA SANCHEZ Atorvastatin Calcium (Atorvastatin Calcium) 40 Mg Tablet, 1 TAB PO QHS for cholesterol, #90 Ref 3 (Reported) Entered as Reported by: JOSE BREWER on 04/15/18319 Last Taken: Unknown Dose on 04/13/18 Last Action: Continued on 04/16/18309 by RIVERA SANCHEZ Carvedilol (Carvedilol ) 12.5 Mg Tablet, 12.5 MG PO BIDWMEALS for CARDIAC, ( Reported) Entered as Reported by: JOSE BREWER on 04/15/18319 Last Taken: Unknown Dose on 04/14/18 Last Action: Continued on 04/16/18309 by RIVERA SANCHEZ Insulin Glargine,Hum.rec.anlog (Lantus Solostar) 100 Unit/1 Ml Insuln.pen, 24 UNIT SQ QHS for diabetes, #15 Ref 5 (Reported) Entered as Reported by: JOSE BREWER on 04/15/18319 Last Taken: Unknown Dose on Unknown Date & Time Last Action: New Order on 04/15/18319 by JOSE BREWER Insulin Lispro (Humalog) 100 Unit/1 Ml Cartridge, 10 UNIT SQ TIDWMEALS for diabetes, (Reported) Entered as Reported by: JOSE BREWER on 04/15/18319 Last Taken: Unknown Dose on 04/14/18 Last Action: New Order on 04/15/18319 by JOSE RBEWER Oseltamivir Phosphate (Tamiflu) 30 Mg Capsule, 30 MG PO QMWF for INFLUENZA A for 5 Days, #5 Take only after dialysis every other day Prescribed by: BRUCE PARK MD on 04/15/181708 Warfarin Sodium (Coumadin) 7.5 Mg Tablet, 2 TAB PO DAILY for blood clot, #30 ( Reported) Entered as Reported by: JOSE BREWER on 04/15/18319 Last Taken: Unknown Dose on 04/14/18 Last Action: Converted on 04/16/18309 by RIVERA SANCHEZ Scheduled PRN [Renaplex 1 tab ] , TAB PO DAILY PRN for Renal, (Reported) Entered as Reported by: JOSE BREWER on 04/15/18319 Last Taken: Unknown Dose on 04/14/18 Last Action: New Order on 04/15/18319 by BRUCE IBANEZ MD Apr 15, 2018 17:14
[2018-04-16] MEDS ORDERED: ACETAMINOPHEN 325 MG TABLET. PO PRN ×2 (02:45→03:15)
--- NOTE | 2018-04-16 03:00 | NUR ---
RN obtained 0300 VS at this time. Pt currently febrile, 100.1 oral. BP 185/93, rechecked 183/97. Pt advised 'I haven't rec'd my BP meds'. RN reviewed home meds, and not currently restarted on Carvedilol 12.5 BID, Atorvastatin 40mg QHS, Coumadin. MD contacted and made aware of home meds, restarted at this time. gave one time order 25mg Hydralizaine. Will continue to monitor closely, and reassess BP, HR, and temp.
[2018-04-16] MEDS ORDERED: hydrALAZINE 20 MG/ML VIAL. IVP ONE (03:15)
[2018-04-16 03:26] VITALS: BP 185/93
[2018-04-16 03:27] VITALS: BP 187/95
[2018-04-16 04:12] VITALS: BP 140/67
[2018-04-16 07:00] VITALS: BP 171/93
[2018-04-16] MEDS ORDERED: IV NORMAL SALINE 1000ML BAG 1,000 ML IV PRN ×2 (07:01)
[2018-04-16] MEDS ORDERED: DIALYSIS PATIENT. MC PRN (07:15)
[2018-04-16] MEDS ORDERED: ALBUMIN HUMAN 25% 200 ML IV PRN (07:15)
[2018-04-16] MEDS ORDERED: diphenhydrAMINE 50 MG/ML VIAL IV PRN ×2 (07:15)
[2018-04-16] MEDS ORDERED: ACETAMINOPHEN 500 MG TABLET PO PRN (07:15)
--- NOTE | 2018-04-16 07:16 | NUR ---
RUMA Campos called to get report on the patient for morning dialysis. Advised patient was to discharge today, and was still hoping to be discharged today and make it to her 4pm Outpatient dialysis session. [facility] facility [facility]. This RN called URMA Campos back to advise patient does not want to do dialysis here at [facility].
--- NOTE | 2018-04-16 07:55 | PDOC ---
PROGRESS NOTES Chief Complaint Chief Complaint A/P: Bleeding AV fistula - seems to have stopped, no need to consult vascular surgery. 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 She has the flu. I will start 30m tamiflu to be given post dialysis every other day and confirm with another rapid flu test ESRD on HD - will consult nephrology. Normally dialyzes TihSa, will go outpatient if she leaves today or tomorrow Greater than 105 minutes on admission and discharge same day. She wants to leave , but at least needs flu treatment and precautions in place History of Present Illness History of Present Illness 62-year-old female w/ PMHx DM, HTN, carotid thrombosis who presents to ER via EMS from her dialysis center. Patient had had dialysis and after her dialysis shunt was reaccessed patient had continued bleeding at the site. Staff had applied direct pressure for approximately 2 hours however her bleeding continued so patient was sent to the ER for evaluation. Pt reports she has had some dizziness over past couple of hours. She reports she has had PUENTE denies vision changes, eye pain, or tinnitus. She is on daily Coumadin. Pt has 100.6 temp at triage- she reports in past 2 days she has had intermittent fever, nonprod. cough, and generalized fatigue. She reports when she has had fever she has had intermittent PUENTE. She denies urinary sxs. On repeat flu testing she was positive for Flu A. Seen by nephrology, her bleeding definitely stopped and stayed last night due to some hypoxia and worsening cough improved by this morning by nebs. She wishes to dialyze here as she started having loose bowel this morning. Plan: Ok for d/c after dialysis. Likely diarrhea side effect of tamiflu. Vitals Vitals Vital Signs Date Time Temp Pulse Resp B/P (MAP) Pulse Ox O2 Delivery O2 Flow Rate FiO2 04/16/18 07:00 99.5 105 18 171/93 (119) 96 Room Air 99.5 Physical Exam General: Alert, Oriented X3, Cooperative, No acute distress Abdomen: Normal bowel sounds, Soft, No tenderness, No hepatosplenomegaly, No masses Extremities: No clubbing, No cyanosis, No edema, Normal pulses, No tenderness/ swelling, Other (LUE with wrap, good bruit) Skin: No rashes, No breakdown, No significant lesion Labs LABS Laboratory Tests Test 04/15/18 08:18 04/15/18 11:40 04/15/18 12:51 04/15/18 13:05 Glucose (Fingerstick) 191 mg/dL (70-99) 201 mg/dL (70-99) Lactic Acid Level 0.8 mmol/L (0.4-2.0) Influenza Type A Antigen Positive (NEGATIVE) Influenza Type B Antigen Negative (NEGATIVE) Test 04/15/18 17:09 Glucose (Fingerstick) 201 mg/dL (70-99) Comment Review of Relevant I have reviewed the following items domo (where applicable) has been applied. Labs Laboratory Tests Test 04/14/18 22:20 04/14/18 23:05 04/14/18 23:15 04/15/18 05:23 White Blood Count 6.8 x10^3/uL (4.0-11.0) 6.1 x10^3/uL (4.0-11.0) Red Blood Count 3.43 x10^6/uL (3.50-5.40) 3.20 x10^6/uL (3.50-5.40) Hemoglobin 9.9 g/dL (12.0-15.5) 9.0 g/dL (12.0-15.5) Hematocrit 30.0 % (36.0-47.0) 28.0 % (36.0-47.0) Mean Corpuscular Volume 88 fL (79-100) 87 fL (79-100) Mean Corpuscular Hemoglobin 29 pg (25-35) 28 pg (25-35) Mean Corpuscular Hemoglobin Concent 33 g/dL (31-37) 32 g/dL (31-37) Red Cell Distribution Width 18.2 % (11.5-14.5) 18.4 % (11.5-14.5) Platelet Count 171 x10^3/uL (140-400) 156 x10^3/uL (140-400) Neutrophils (%) (Auto) 85 % (31-73) 79 % (31-73) Lymphocytes (%) (Auto) 6 % (24-48) 9 % (24-48) Monocytes (%) (Auto) 7 % (0-9) 10 % (0-9) Eosinophils (%) (Auto) 2 % (0-3) 2 % (0-3) Basophils (%) (Auto) 1 % (0-3) 1 % (0-3) Neutrophils # (Auto) 5.8 x10^3uL (1.8-7.7) 4.9 x10^3uL (1.8-7.7) Lymphocytes # (Auto) 0.4 x10^3/uL (1.0-4.8) 0.5 x10^3/uL (1.0-4.8) Monocytes # (Auto) 0.5 x10^3/uL (0.0-1.1) 0.6 x10^3/uL (0.0-1.1) Eosinophils # (Auto) 0.1 x10^3/uL (0.0-0.7) 0.1 x10^3/uL (0.0-0.7) Basophils # (Auto) 0.0 x10^3/uL (0.0-0.2) 0.0 x10^3/uL (0.0-0.2) Prothrombin Time 26.0 SEC (11.7-14.0) Prothromb Time International Ratio 2.4 (0.8-1.1) Activated Partial Thromboplast Time 39 SEC (24-38) Sodium Level 139 mmol/L (136-145) 140 mmol/L (136-145) Potassium Level 3.7 mmol/L (3.5-5.1) 4.3 mmol/L (3.5-5.1) Chloride Level 98 mmol/L (98-107) 98 mmol/L (98-107) Carbon Dioxide Level 34 mmol/L (21-32) 34 mmol/L (21-32) Anion Gap 7 (6-14) 8 (6-14) Blood Urea Nitrogen 25 mg/dL (7-20) 30 mg/dL (7-20) Creatinine 2.6 mg/dL (0.6-1.0) 3.2 mg/dL (0.6-1.0) Estimated GFR (Cockcroft-Gault) 22.6 17.8 BUN/Creatinine Ratio 10 (6-20) Glucose Level 255 mg/dL (70-99) 218 mg/dL (70-99) Calcium Level 9.0 mg/dL (8.5-10.1) 8.3 mg/dL (8.5-10.1) Total Bilirubin 0.9 mg/dL (0.2-1.0) Aspartate Amino Transf (AST/SGOT) 15 U/L (15-37) Alanine Aminotransferase (ALT/SGPT) 22 U/L (14-59) Alkaline Phosphatase 94 U/L (46-116) Total Protein 7.2 g/dL (6.4-8.2) Albumin 3.3 g/dL (3.4-5.0) Albumin/Globulin Ratio 0.8 (1.0-1.7) Influenza Type A Antigen Negative (NEGATIVE) Influenza Type B Antigen Negative (NEGATIVE) Test 04/15/18 08:18 04/15/18 11:40 04/15/18 12:51 04/15/18 13:05 Glucose (Fingerstick) 191 mg/dL (70-99) 201 mg/dL (70-99) Lactic Acid Level 0.8 mmol/L (0.4-2.0) Influenza Type A Antigen Positive (NEGATIVE) Influenza Type B Antigen Negative (NEGATIVE) Test 04/15/18 17:09 Glucose (Fingerstick) 201 mg/dL (70-99) Laboratory Tests Test 04/15/18 08:18 04/15/18 11:40 04/15/18 12:51 04/15/18 13:05 Glucose (Fingerstick) 191 mg/dL (70-99) 201 mg/dL (70-99) Lactic Acid Level 0.8 mmol/L (0.4-2.0) Influenza Type A Antigen Positive (NEGATIVE) Influenza Type B Antigen Negative (NEGATIVE) Test 04/15/18 17:09 Glucose (Fingerstick) 201 mg/dL (70-99) Medications Current Medications Acetaminophen (Tylenol) 1,000 mg 1X ONCE PO Last administered on 04/14/18at 22: 14; Start 04/14/18 at 22:30; Stop 04/14/18 at 22:31; Status DC Lidocaine/ Epinephrine (Let Topical) 3 ml 1X ONCE TP Last administered on at 22:14; Start 04/14/18 at 22:30; Stop 04/14/18 at 22:31; Status DC Sodium Chloride 500 ml @ 500 mls/hr 1X ONCE IV Last administered on 04/14/18 22:51; Start 04/14/18 at 22:30; Stop 04/14/18 at 23:29; Status DC Fentanyl Citrate (Fentanyl 2ml Vial) 25 mcg PRN Q3HRS PRN IV SEVERE PAIN; Start 04/14/18 at 23:30; Stop 04/15/18 at 23:29; Status DC Acetaminophen (Tylenol) 650 mg PRN Q4HRS PRN PO FEVER Last administered on 19:57; Start 04/14/18 at 23:30; Stop 04/15/18 at 23:29; Status DC Benzonatate (Tessalon Perle) 100 mg 1X ONCE PO Last administered on 04/15/18 02:14; Start 04/15/18 at 01:00; Stop 04/15/18 at 01:01; Status DC Guaifenesin (Robitussin Dm) 10 ml PRN Q4HRS PRN PO COUGH 1ST CHOICE Last administered on 04/15/18 13:35; Start 04/15/18 at 03:30 Ondansetron HCl (Zofran) 4 mg PRN Q6HRS PRN IV NAUSEA/VOMITING 1ST CHOICE Last administered on 04/15/18 03:31; Start 04/15/18 at 03:30 Insulin Human Lispro (HumaLOG) 0-7 UNITS TIDWMEALS SQ Last administered on 17:17; Start 04/15/18 at 08:00 Dextrose (Dextrose 50%-Water Syringe) 12.5 gm PRN Q15MIN PRN IV SEE COMMENTS; Start 04/15/18 at 03:30 Oseltamivir Phosphate (Tamiflu) 30 mg QMWF PO Last administered on 04/15/18 17: 06; Start 04/15/18 at 16:00; Stop 04/20/18 at 15:59 Acetaminophen (Tylenol) 650 mg PRN Q6HRS PRN PO FEVER > 100.5'F Last administered on 04/16/18 02:47; Start 04/16/18 at 02:45; Stop 04/16/18 at 03:09; Status DC Acetaminophen (Tylenol) 650 mg PRN Q4HRS PRN PO FEVER > 100.5'F; Start 04/16/18 at 03:15 Hydralazine HCl (Apresoline Inj) 25 mg 1X ONCE IVP Last administered on at 03:22; Start 04/16/18 at 03:15; Stop 04/16/18 at 03:16; Status DC Aspirin (Children'S Aspirin) 81 mg DAILYWBKFT PO ; Start 04/16/18 at 08:00 Atorvastatin Calcium (Lipitor) 40 mg QHS PO ; Start 04/16/18 at 21:00 Carvedilol (Coreg) 12.5 mg BIDWMEALS PO ; Start 04/16/18 at 08:00 Warfarin Sodium (Coumadin) 15 mg DAILY16 PO ; Start 04/16/18 at 16:00 Warfarin Sodium (Coumadin Per Physician) 1 each PRN DAILY PRN MC SEE COMMENTS; Start 04/16/18 at 16:00 Sodium Chloride 1,000 ml @ 1,000 mls/hr Q1H PRN IV hypotension; Start 04/16/18 at 07:01; Stop 04/16/18 at 13:00 Albumin Human 200 ml @ 200 mls/hr 1X PRN PRN IV Hypotension; Start 04/16/18 at 07:15; Stop 04/16/18 at 13:14 Acetaminophen (Tylenol) 500 mg 1X PRN PRN PO MILD PAIN / TEMP; Start 04/16/18 at 07:15; Stop 04/17/18 at 07:14 Diphenhydramine HCl (Benadryl) 25 mg 1X PRN PRN IV ITCHING; Start 04/16/18 at 07 :15; Stop 04/17/18 at 07:14 Diphenhydramine HCl (Benadryl) 25 mg 1X PRN PRN IV ITCHING; Start 04/16/18 at 07 :15; Stop 04/17/18 at 07:14 Sodium Chloride 1,000 ml @ 400 mls/hr Q2H30M PRN IV PATENCY; Start 04/16/18 at 07:01; Stop 04/16/18 at 19:00 Info (PHARMACY MONITORING -- do not chart) 1 each PRN DAILY PRN MC SEE COMMENTS ; Start 04/16/18 at 07:15 Active Scripts Active Tamiflu (Oseltamivir Phosphate) 30 Mg Capsule 30 Mg PO QMWF 5 Days Take only after dialysis every other day Reported Carvedilol (Carvedilol) 12.5 Mg Tablet 12.5 Mg PO BIDWMEALS Humalog (Insulin Lispro) 100 Unit/1 Ml Cartridge 10 Unit SQ TIDWMEALS [Renaplex 1 tab ] Tab PO DAILY PRN Aspirin 81 Mg Tab.chew 1 Tab PO DAILY Lantus Solostar (Insulin Glargine,Hum.rec.anlog) 100 Unit/1 Ml Insuln.pen 24 Unit SQ QHS Atorvastatin Calcium 40 Mg Tablet 1 Tab PO QHS Coumadin (Warfarin Sodium) 7.5 Mg Tablet 2 Tab PO DAILY Vitals/I & O Vital Sign - Last 24 Hours 04/15/18 04/15/18 04/15/18 04/15/18 11:00 15:00 19:00 20:20 Temp 100.7 99.0 100.2 100.7 99.0 100.2 Pulse 102 94 96 Resp 18 18 18 B/P (MAP) 136/63 (87) 106/54 (71) 144/74 (97) Pulse Ox 90 94 95 O2 Delivery Room Air Room Air Room Air Room Air 04/15/18 04/16/18 04/16/18 04/16/18 23:00 03:22 03:26 03:27 Temp 99.8 100.1 99.8 100.1 Pulse 104 100 100 Resp 18 18 B/P (MAP) 141/74 (96) 185/93 185/93 (123) 187/95 (125) Pulse Ox 97 96 O2 Delivery Room Air Room Air 04/16/18 04/16/18 04:12 07:00 Temp 99.7 99.5 99.7 99.5 Pulse 101 105 Resp 18 18 B/P (MAP) 140/67 (91) 171/93 (119) Pulse Ox 96 96 O2 Delivery Room Air Room Air Intake and Output 04/15/18 04/15/18 04/16/18 14:59 22:59 06:59 Intake Total 260 ml 500 ml 120 ml Balance 260 ml 500 ml 120 ml BRUCE PARK MD Apr 16, 2018 07:55
[2018-04-16] MEDS ORDERED: CARVEDILOL 12.5 MG TABLET. PO SCH (08:00)
[2018-04-16] MEDS ORDERED: ASPIRIN CHEWABLE 81 MG TABLET. PO SCH (08:00)
[2018-04-16] MEDS: INSULIN LISPRO 300 UNITS/3 ML INSULN.PEN. SQ SCH ×2 (08:00→12:00)
--- NOTE | 2018-04-16 09:12 | NUR ---
IP: Pt is influenza + requiring droplet precautions for 5 days and 24 hours without a fever, whichever is longest.
[2018-04-16] MEDS ORDERED: LIDOCAINE 1% PF 2 ML VIAL. ONE ×2 (09:48→10:00)
--- NOTE | 2018-04-16 11:59 | NUR ---
SW following for discharge planning. Discussed with RN, pt discharging home today after dialysis. No SW needs.
--- NOTE | 2018-04-16 14:50 | PDOC ---
SUBJECTIVE ROS Diarrhea this am , wants to go home, Inf Positive, On Tamiflu Seen on HD tolerating well OBJECTIVE Vital Signs Vital Signs Date Time Temp Pulse Resp B/P (MAP) Pulse Ox O2 Delivery O2 Flow Rate FiO2 04/16/18 08:00 Room Air 04/16/18 07:00 99.5 105 18 171/93 (119) 96 99.5 I & 0 Intake and Output 04/16/18 06:59 Intake Total 880 ml Balance 880 ml Intake Oral 880 ml # Voids 2 PHYSICAL EXAM Physical Exam General: Alert, Oriented X3, Cooperative, No acute distress Abdomen: Normal bowel sounds, Soft, No tenderness, No hepatosplenomegaly, No masses Extremities: No clubbing, No cyanosis, No edema, Normal pulses, No tenderness/ swelling, Other (LUE with wrap, good bruit) Skin: No rashes, No breakdown, No significant lesion DIAGNOSIS/ASSESSMENT Assessment & Plan ESRD - HD TTS ( [facility]) - Dr. Scruggs Seen on HD tolerating well, continue as ordered, Fernie Quintana Access- Lt UA shunt ? 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 Coumadin Discussed with Pt and RN COMMENT/RELEVANT DATA Meds Current Medications Medications (Trade) Dose Ordered Sig/Kathleen Start Time Stop Time Status Last Admin Dose Admin Acetaminophen (Tylenol) 500 mg 1X PRN PRN 04/16/18 07:15 04/17/18 07:14 Albumin Human 200 ml @ 200 mls/hr 1X PRN PRN 04/16/18 07:15 04/16/18 13:14 DC Aspirin (Children'S Aspirin) 81 mg DAILYWBKFT 04/16/18 08:00 Atorvastatin Calcium (Lipitor) 40 mg QHS 04/16/18 21:00 Benzonatate (Tessalon Perle) 100 mg 1X ONCE 04/15/18 01:00 04/15/18 01:01 DC 04/15/18 02:14 100 MG Carvedilol (Coreg) 12.5 mg BIDWMEALS 04/16/18 08:00 Dextrose (Dextrose 50%-Water Syringe) 12.5 gm PRN Q15MIN PRN 04/15/18 03:30 Diphenhydramine HCl (Benadryl) 25 mg 1X PRN PRN 04/16/18 07:15 04/17/18 07:14 Fentanyl Citrate (Fentanyl 2ml Vial) 25 mcg PRN Q3HRS PRN 04/14/18 23:30 04/15/18 23:29 DC Guaifenesin (Robitussin Dm) 10 ml PRN Q4HRS PRN 04/15/18 03:30 04/15/18 13:35 10 ML Hydralazine HCl (Apresoline Inj) 25 mg 1X ONCE 04/16/18 03:15 04/16/18 03:16 DC 04/16/18 03:22 25 MG Info (PHARMACY MONITORING -- do not chart) 1 each PRN DAILY PRN 04/16/18 07:15 Insulin Human Lispro (HumaLOG) 0-7 UNITS TIDWMEALS 04/15/18 08:00 04/15/18 17:17 4 UNITS Lidocaine HCl (Xylocaine-Mpf 1% 2ml Vial) 2 ml STK-MED ONCE 04/16/18 09:48 04/16/18 09:49 DC Lidocaine/ Epinephrine (Let Topical) 3 ml 1X ONCE 04/14/18 22:30 04/14/18 22:31 DC 04/14/18 22:14 3 ML Ondansetron HCl (Zofran) 4 mg PRN Q6HRS PRN 04/15/18 03:30 04/15/18 03:31 4 MG Oseltamivir Phosphate (Tamiflu) 30 mg QMWF 04/15/18 16:00 04/20/18 15:59 04/15/18 17:06 30 MG Sodium Chloride 1,000 ml @ 400 mls/hr Q2H30M PRN 04/16/18 07:01 04/16/18 19:00 Warfarin Sodium (Coumadin Per Physician) 1 each PRN DAILY PRN 04/16/18 16:00 Warfarin Sodium (Coumadin) 15 mg DAILY16 04/16/18 16:00 Lab Laboratory Tests Test 04/15/18 17:09 04/16/18 08:08 Glucose (Fingerstick) 201 mg/dL (70-99) 134 mg/dL (70-99) Results All relevant outside records, renal labs, imaging studies, telemetry/EKG's were reviewed. ROBER TOLEDO MD Apr 16, 2018 14:50
[2018-04-16 15:00] VITALS: BP 145/72
[2018-04-16 15:09] VITALS: BP 145/72
[2018-04-16] MEDS ORDERED: OSELTAMIVIR 30 MG CAPSULE PO ONE (15:15)
[2018-04-16] MEDS ORDERED: WARFARIN 7.5 MG TABLET. PO SCH (16:00)
--- NOTE | 2018-04-16 17:04 | NUR ---
Pt was given dc packet. Rx given for oselamivir. Pt educated on flu precautions. No questions asked. Pt is to f/u with PCP as needed. Pt was taken to ER entrance at 1605 by JACINTA.
[2018-04-16] MEDS ORDERED: ATORVASTATIN CALCIUM 40 MG TABLET. PO SCH (21:00)
== END 2018-04-16 16:05 | disposition home or self-care (01) | DRG 314 ==
LOC: ER 21:36 → 4 NORTH 22:50
PROVIDERS: ADMIT Internal Medicine; ATTEND Internal Medicine
PROC: 5A1D70Z Performance of Urinary Filtration, Intermittent, Less than 6 Hours Per Day (ICD-10-PCS; principal; 2018-04-16)
DX: T82.838A Hemorrhage due to vascular prosthetic devices, implants and grafts, initial encounter (principal); N18.6 End stage renal disease; I12.0 Hypertensive chronic kidney disease with stage 5 chronic kidney disease or end stage renal disease; J10.1 Influenza due to other identified influenza virus with other respiratory manifestations; E11.22 Type 2 diabetes mellitus with diabetic chronic kidney disease; I65.29 Occlusion and stenosis of unspecified carotid artery; F41.9 Anxiety disorder, unspecified; E78.00 Pure hypercholesterolemia, unspecified; Y83.2 Surgical operation with anastomosis, bypass or graft as the cause of abnormal reaction of the patient, or of later complication, without mention of misadventure at the time of the procedure; R09.02 Hypoxemia; R19.7 Diarrhea, unspecified; T37.5X5A Adverse effect of antiviral drugs, initial encounter; Z99.2 Dependence on renal dialysis; Z90.710 Acquired absence of both cervix and uterus; Z90.49 Acquired absence of other specified parts of digestive tract; Z85.3 Personal history of malignant neoplasm of breast; Z88.6 Allergy status to analgesic agent; Y92.89 Other specified places as the place of occurrence of the external cause; Z82.49 Family history of ischemic heart disease and other diseases of the circulatory system; Z79.01 Long term (current) use of anticoagulants
CPT/HCPCS: 36415; 71045; 80048; 80053; 82962; 83605; 85025; 85610; 85730; 87804; 96360; J0360; J1815; J2405; J7040; 99285-25

== ENCOUNTER 2018-07-27 01:54 | Emergency (ER) | payer MEDICARE ==
[~2018-07-27] VITALS: Ht 162.6 cm; Wt 99.8 kg
[~2018-07-27 01:54] MED LIST: ASPI-630 PO; ATOR40TA59 PO; CARV12.511 PO; INSU100C SQ; INSU100I13 SQ; OSEL30CA PO; RENAPLEX PO; WARF7.5T48 PO
[2018-07-27] MEDS ORDERED: ONDANSETRON PF 4 MG/2 ML VIAL. IV ONE (02:45)
[2018-07-27] MEDS ORDERED: IV NORMAL SALINE 1000ML BAG 1,000 ML IV ONE (02:45)
[2018-07-27] MEDS ORDERED: fentaNYL PF VIAL 100 MCG/2 ML VIAL IV ONE (02:45)
[2018-07-27] MEDS: HYDROcodone/APAP 5/325MG 1 TAB TABLET PO ONE (03:06)
[2018-07-27] MEDS: ONDANSETRON ODT 4 MG TAB.RAPDIS. PO ONE (03:06)
[2018-07-27 03:22] LABS: BASO # 0.1 x10^3/uL (0.0-0.2); BASO % 1 % (0-3); EOS # 0.2 x10^3/uL (0.0-0.7); EOS % 4 % (0-3); HEMATOCRIT 31.1 % (36.0-47.0); HEMOGLOBIN 10.3 g/dL (12.0-15.5); LYMPH # 2.1 x10^3/uL (1.0-4.8); LYMPH % 33 % (24-48); MEAN CORPUSCULAR HEMOGLOBIN 29 pg (25-35); MEAN CORPUSCULAR HGB CONC 33 g/dL (31-37); MEAN CORPUSCULAR VOLUME 88 fL (79-100); MONO # 0.6 x10^3/uL (0.0-1.1); MONO % 9 % (0-9); NEUT # 3.5 x10^3uL (1.8-7.7); NEUT % 54 % (31-73); PLATELET COUNT 193 x10^3/uL (140-400); RED BLOOD COUNT 3.55 x10^6/uL (3.50-5.40); RED CELL DISTRIBUTION WIDTH 19.5 % (11.5-14.5); WHITE BLOOD COUNT 6.5 x10^3/uL (4.0-11.0)
[2018-07-27 03:31] LABS: PROTHROMBIN TIME PATIENT 24.8 SEC (11.7-14.0)
[2018-07-27 03:32] LABS: CALCIUM 9.7 mg/dL (8.5-10.1); GFR 10.6; POTASSIUM 4.4 mmol/L (3.5-5.1)
[2018-07-27 03:35] VITALS: BP 201/119
[2018-07-27 03:38] LABS: ALBUMIN 3.4 g/dL (3.4-5.0); ALBUMIN/GLOBULIN RATIO 0.9 (1.0-1.7); MAGNESIUM 2.1 mg/dL (1.8-2.4); TOTAL BILIRUBIN 0.4 mg/dL (0.2-1.0); TOTAL PROTEIN 7.4 g/dL (6.4-8.2)
[2018-07-27] MEDS ORDERED: HYDR-3164 PO (03:43)
[2018-07-27] MEDS ORDERED: ONDA4TAB12 PO (03:43)
--- NOTE | 2018-07-27 03:43 | PHYS DOC ---
Past Medical History Past Medical History: Anxiety, Diabetes-Type II, DVT, High Cholesterol, Hypertension, Kidney Infection Additional Past Medical Histor: KIDNEY DISEASE Past Surgical History: Appendectomy, Cholecystectomy, Hysterectomy Additional Past Surgical Histo: RIGHT BREAST CA W/ LUMPECTOMY, RIGHT LUNG SX FOR TUMOR Alcohol Use: Rarely Drug Use: None Adult General Chief Complaint Chief Complaint: LOWER EXT PAIN HPI HPI Patient is a 62 year old [f__sex] who presents with [] Review of Systems Review of Systems Constitutional: Denies fever or chills [] Eyes: Denies change in visual acuity, redness, or eye pain [] HENT: Denies nasal congestion or sore throat [] Respiratory: Denies cough or shortness of breath [] Cardiovascular: No additional information not addressed in HPI [] GI: Denies abdominal pain, nausea, vomiting, bloody stools or diarrhea [] : Denies dysuria or hematuria [] Musculoskeletal: Denies back pain or joint pain [] Integument: Denies rash or skin lesions [] Neurologic: Denies headache, focal weakness or sensory changes [] Endocrine: Denies polyuria or polydipsia [] All other systems were reviewed and found to be within normal limits, except as documented in this note. Current Medications Current Medications Current Medications Medications (Trade) Dose Ordered Sig/Kathleen Start Time Stop Time Status Last Admin Dose Admin Acetaminophen/ Hydrocodone Bitart (Lortab 5/325) 1 tab 1X ONCE 07/27/18 03:00 07/27/18 03:01 DC 07/27/18 03:06 1 TAB Fentanyl Citrate (Fentanyl 2ml Vial) 50 mcg 1X ONCE 07/27/18 02:45 07/27/18 02:45 DC Ondansetron HCl (Zofran Odt) 4 mg 1X ONCE 07/27/18 03:00 07/27/18 03:01 DC 07/27/18 03:06 4 MG Ondansetron HCl (Zofran) 4 mg 1X ONCE 07/27/18 02:45 07/27/18 02:45 DC Sodium Chloride 1,000 ml @ 1,000 mls/hr 1X ONCE 07/27/18 02:45 07/27/18 02:45 DC Allergies Allergies Allergies Coded Allergies Type Severity Reaction Last Updated Verified oxycodone Allergy Intermediate Itching 06/28/16 Yes codeine Allergy Mild nausea 04/15/18 Yes Physical Exam Physical Exam Constitutional: Well developed, well nourished, no acute distress, non-toxic appearance. [] HENT: Normocephalic, atraumatic, bilateral external ears normal, oropharynx moist, no oral exudates, nose normal. [] Eyes: PERRLA, EOMI, conjunctiva normal, no discharge. [] Neck: Normal range of motion, no tenderness, supple, no stridor. [] Cardiovascular:Heart rate regular rhythm, no murmur [] Lungs & Thorax: Bilateral breath sounds clear to auscultation [] Abdomen: Bowel sounds normal, soft, no tenderness, no masses, no pulsatile masses. [] Skin: Warm, dry, no erythema, no rash. [] Back: No tenderness, no CVA tenderness. [] Extremities: No tenderness, no cyanosis, no clubbing, ROM intact, no edema. [] Neurologic: Alert and oriented X 3, normal motor function, normal sensory function, no focal deficits noted. [] Psychologic: Affect normal, judgement normal, mood normal. [] Current Patient Data Vital Signs Vital Signs Date Time Temp Pulse Resp B/P (MAP) Pulse Ox O2 Delivery O2 Flow Rate FiO2 07/27/18 03:35 80 20 201/119 (146) 97 Room Air 07/27/18 02:03 97.9 97.9 Lab Values Laboratory Tests Test 07/27/18 03:05 White Blood Count 6.5 x10^3/uL (4.0-11.0) Red Blood Count 3.55 x10^6/uL (3.50-5.40) Hemoglobin 10.3 g/dL (12.0-15.5) L Hematocrit 31.1 % (36.0-47.0) L Mean Corpuscular Volume 88 fL (79-100) Mean Corpuscular Hemoglobin 29 pg (25-35) Mean Corpuscular Hemoglobin Concent 33 g/dL (31-37) Red Cell Distribution Width 19.5 % (11.5-14.5) H Platelet Count 193 x10^3/uL (140-400) Neutrophils (%) (Auto) 54 % (31-73) Lymphocytes (%) (Auto) 33 % (24-48) Monocytes (%) (Auto) 9 % (0-9) Eosinophils (%) (Auto) 4 % (0-3) H Basophils (%) (Auto) 1 % (0-3) Neutrophils # (Auto) 3.5 x10^3uL (1.8-7.7) Lymphocytes # (Auto) 2.1 x10^3/uL (1.0-4.8) Monocytes # (Auto) 0.6 x10^3/uL (0.0-1.1) Eosinophils # (Auto) 0.2 x10^3/uL (0.0-0.7) Basophils # (Auto) 0.1 x10^3/uL (0.0-0.2) Prothrombin Time 24.8 SEC (11.7-14.0) H Prothrombin Time INR 2.3 (0.8-1.1) H PTT 43 SEC (24-38) H Sodium Level 139 mmol/L (136-145) Potassium Level 4.4 mmol/L (3.5-5.1) Chloride Level 102 mmol/L (98-107) Carbon Dioxide Level 26 mmol/L (21-32) Anion Gap 11 (6-14) Blood Urea Nitrogen 52 mg/dL (7-20) H Creatinine 5.0 mg/dL (0.6-1.0) H Estimated GFR (Cockcroft-Gault) 10.6 BUN/Creatinine Ratio 10 (6-20) Glucose Level 184 mg/dL (70-99) H Calcium Level 9.7 mg/dL (8.5-10.1) Magnesium Level 2.1 mg/dL (1.8-2.4) Total Bilirubin 0.4 mg/dL (0.2-1.0) Aspartate Amino Transferase (AST) 10 U/L (15-37) L Alanine Aminotransferase (ALT) 20 U/L (14-59) Alkaline Phosphatase 78 U/L (46-116) Total Protein 7.4 g/dL (6.4-8.2) Albumin 3.4 g/dL (3.4-5.0) Albumin/Globulin Ratio 0.9 (1.0-1.7) L Laboratory Tests 07/27/18 03:05 Laboratory Tests 07/27/18 03:05 EKG EKG [] Radiology/Procedures Radiology/Procedures PROCEDURE: VENOUS LOWER EXTREMITY RIGHT Right lower extremity venous Doppler ultrasound History: Right upper posterior thigh pain. No known injury. Comparison: None. Procedure: Color flow Doppler, Doppler spectral analysis, and 2D images are obtained with and without compression in the area of the common femoral vein, superficial femoral vein - femoral vein junction, main femoral vein (superficial femoral vein) and popliteal vein. Veins of the proximal calf are also imaged. Findings: There is normal color flow, augmentation, and compressibility of all visualized vein segments. No evidence of deep venous thrombus is present. In the right posterior mid thigh there is a complex fluid collection measuring 4.3 x 3.6 x 2.8 cm. Appearance is somewhat masslike but color Doppler interrogation does not demonstrate any internal blood flow. IMPRESSION: 1. No evidence of right lower extremity deep venous thrombosis. 2. Probable complex fluid collection in the right posterior mid thigh. Recommend ultrasound follow-up of this finding in 6-8 weeks to assess for improvement. Electronically signed by: Wes Silva MD (07/27/2018 3:55 AM) [facility] [place] Course & Med Decision Making Course & Med Decision Making Pertinent Labs and Imaging studies reviewed. (See chart for details) [] Dragon Disclaimer Dragon Disclaimer This electronic medical record was generated, in whole or in part, using a voice recognition dictation system. Departure Departure Impression: Primary Impression: Hematoma of right thigh Disposition: 01 HOME, SELF-CARE Condition: STABLE Referrals: UNKNOWN PCP NAME (PCP) Patient Instructions: Hematoma, [id number] Scripts Ondansetron (ONDANSETRON ODT) 4 Mg Tab.rapdis 1 TAB PO PRN Q6-8HRS PRN for NAUSEA, #16 TAB Prov: JESSICA SALCEDO DO 07/27/18 Hydrocodone/Apap 5-325 (NORCO 5-325 TABLET) 1 Each Tablet 1 TAB PO PRN Q6HRS PRN for PAIN, #14 TAB 0 Refills Prov: JESSICA SALCEDO DO 07/27/18 Problem Qualifiers Primary Impression: Hematoma of right thigh Encounter type: initial encounter Qualified Codes: S70.11XA - Contusion of right thigh, initial encounter JESSICA SALCEDO DO Jul 27, 2018 03:43
--- NOTE | 2018-07-27 03:58 | RAD ---
Right lower extremity venous Doppler ultrasound History: Right upper posterior thigh pain. No known injury. Comparison: None. Procedure: Color flow Doppler, Doppler spectral analysis, and 2D images are obtained with and without compression in the area of the common femoral vein, superficial femoral vein - femoral vein junction, main femoral vein (superficial femoral vein) and popliteal vein. Veins of the proximal calf are also imaged. Findings: There is normal color flow, augmentation, and compressibility of all visualized vein segments. No evidence of deep venous thrombus is present. In the right posterior mid thigh there is a complex fluid collection measuring 4.3 x 3.6 x 2.8 cm. Appearance is somewhat masslike but color Doppler interrogation does not demonstrate any internal blood flow. IMPRESSION: 1. No evidence of right lower extremity deep venous thrombosis. 2. Probable complex fluid collection in the right posterior mid thigh. Recommend ultrasound follow-up of this finding in 6-8 weeks to assess for improvement. Electronically signed by: Wes Silva MD (07/27/2018 3:55 AM) [facility]
== END 2018-07-27 03:50 | disposition home or self-care (01) ==
LOC: ER 01:54
DX: S70.11XA Contusion of right thigh, initial encounter (principal); E11.9 Type 2 diabetes mellitus without complications; E78.00 Pure hypercholesterolemia, unspecified; I10 Essential (primary) hypertension; Z86.718 Personal history of other venous thrombosis and embolism; Z90.710 Acquired absence of both cervix and uterus; Z90.49 Acquired absence of other specified parts of digestive tract; Z90.89 Acquired absence of other organs; Z88.5 Allergy status to narcotic agent; X58.XXXA Exposure to other specified factors, initial encounter; Y93.89 Activity, other specified; Y92.89 Other specified places as the place of occurrence of the external cause; Y99.8 Other external cause status
CPT/HCPCS: 36415; 80053; 83735; 85025; 85610; 85730; 93971; 99285; Q0162

== ENCOUNTER 2019-03-30 17:18 | Emergency (ER) | payer MEDICARE ==
[~2019-03-30] VITALS: Ht 162.6 cm; Wt 105.2 kg
[~2019-03-30 17:18] MED LIST changes: +HYDR-3164 PO; +ONDA4TAB12 PO
--- NOTE | 2019-03-30 18:13 | PHYS DOC ---
Past Medical History Past Medical History: Anxiety, Diabetes-Type II, DVT, High Cholesterol, Hypertension, Kidney Infection, Renal Failure Additional Past Medical Histor: KIDNEY DISEASE, histoplasmosis Past Surgical History: Appendectomy, Cholecystectomy, Hysterectomy Additional Past Surgical Histo: RIGHT BREAST CA W/ LUMPECTOMY, RIGHT LUNG SX FOR TUMOR Smoking Status: Never Smoker Alcohol Use: Rarely Drug Use: None Adult General Chief Complaint Chief Complaint: FLANK PAIN HPI HPI Patient is a 63 year old female who presents with left flank pain, nausea, chills. The patient also states that she's been having symptoms since last night. The patient rates her pain as 6 out of 10 in severity sharp. The patient has a history of dialysis. The patient states she did not go to her dialysis appointment today due to pain. She usually gets dialysis on Friday, , Friday. Review of Systems Review of Systems Constitutional: Reports chills [] Eyes: Denies change in visual acuity, redness, or eye pain [] HENT: Denies nasal congestion or sore throat [] Respiratory: Denies cough or shortness of breath [] Cardiovascular: No additional information not addressed in HPI [] GI: Reports flank pain, nausea, Denies vomiting, bloody stools or diarrhea [] : Denies dysuria or hematuria [] Musculoskeletal: Denies back pain or joint pain [] Integument: Denies rash or skin lesions [] Neurologic: Denies headache, focal weakness or sensory changes [] Endocrine: Denies polyuria or polydipsia [] Complete systems were reviewed and found to be within normal limits, except as documented in this note. Current Medications Current Medications Current Medications Medications (Trade) Dose Ordered Sig/Kathleen Start Time Stop Time Status Last Admin Dose Admin Fentanyl Citrate (Fentanyl 2ml Vial) 50 mcg 1X ONCE 03/30/19 18:15 03/30/19 18:19 DC 03/30/19 18:58 50 MCG Ondansetron HCl (Zofran) 4 mg 1X ONCE 03/30/19 18:15 03/30/19 18:19 DC 03/30/19 18:57 4 MG Allergies Allergies Allergies Coded Allergies Type Severity Reaction Last Updated Verified oxycodone Allergy Intermediate Itching 03/30/19 Yes codeine Allergy Mild nausea 03/30/19 Yes Physical Exam Physical Exam Constitutional: Well developed, well nourished, no acute distress, non-toxic appearance. [] HENT: Normocephalic, atraumatic, bilateral external ears normal, oropharynx moist, no oral exudates, nose normal. [] Eyes: PERRLA, EOMI, conjunctiva normal, no discharge. [] Neck: Normal range of motion, no tenderness, supple, no stridor. [] Cardiovascular:Heart rate regular rhythm, no murmur [] Lungs & Thorax: Bilateral breath sounds clear to auscultation [] Abdomen: Bowel sounds normal, soft, L flank pain, no masses, no pulsatile masses. [] Skin: Warm, dry, no erythema, no rash. [] Back: Has L CVA tenderness. Extremities: No tenderness, no cyanosis, no clubbing, ROM intact, no edema. [] Neurologic: Alert and oriented X 3, normal motor function, normal sensory function, no focal deficits noted. [] Psychologic: Affect normal, judgement normal, mood normal. [] Current Patient Data Vital Signs Vital Signs Date Time Temp Pulse Resp B/P (MAP) Pulse Ox O2 Delivery O2 Flow Rate FiO2 03/30/19 18:58 18 92 Room Air 03/30/19 18:54 80 176/96 (122) 03/30/19 17:55 98.2 98.2 Lab Values Laboratory Tests Test 03/30/19 17:50 03/30/19 19:11 Urine Collection Type Void Urine Color Yellow Urine Clarity Clear Urine pH 7.5 Urine Specific Mclean 1.015 Urine Protein >=300 mg/dL (NEG-TRACE) Urine Glucose (UA) 500 mg/dL (NEG) Urine Ketones (Stick) Negative mg/dL (NEG) Urine Blood Trace (NEG) Urine Nitrite Negative (NEG) Urine Bilirubin Negative (NEG) Urine Urobilinogen Dipstick 0.2 mg/dL (0.2 mg/dL) Urine Leukocyte Esterase Negative (NEG) Urine RBC 3-5 /HPF (0-2) Urine WBC 1-4 /HPF (0-4) Urine Squamous Epithelial Cells Few /LPF Urine Bacteria Many /HPF (0-FEW) White Blood Count 8.2 x10^3/uL (4.0-11.0) Red Blood Count 3.20 x10^6/uL (3.50-5.40) L Hemoglobin 9.6 g/dL (12.0-15.5) L Hematocrit 29.1 % (36.0-47.0) L Mean Corpuscular Volume 91 fL (79-100) Mean Corpuscular Hemoglobin 30 pg (25-35) Mean Corpuscular Hemoglobin Concent 33 g/dL (31-37) Red Cell Distribution Width 17.2 % (11.5-14.5) H Platelet Count 289 x10^3/uL (140-400) Neutrophils (%) (Auto) 61 % (31-73) Lymphocytes (%) (Auto) 26 % (24-48) Monocytes (%) (Auto) 9 % (0-9) Eosinophils (%) (Auto) 3 % (0-3) Basophils (%) (Auto) 1 % (0-3) Neutrophils # (Auto) 5.0 x10^3/uL (1.8-7.7) Lymphocytes # (Auto) 2.2 x10^3/uL (1.0-4.8) Monocytes # (Auto) 0.7 x10^3/uL (0.0-1.1) Eosinophils # (Auto) 0.2 x10^3/uL (0.0-0.7) Basophils # (Auto) 0.1 x10^3/uL (0.0-0.2) Sodium Level 140 mmol/L (136-145) Potassium Level 4.7 mmol/L (3.5-5.1) Chloride Level 105 mmol/L (98-107) Carbon Dioxide Level 22 mmol/L (21-32) Anion Gap 13 (6-14) Blood Urea Nitrogen 53 mg/dL (7-20) H Creatinine 6.7 mg/dL (0.6-1.0) H Estimated GFR (Cockcroft-Gault) 7.6 BUN/Creatinine Ratio 8 (6-20) Glucose Level 144 mg/dL (70-99) H Calcium Level 9.9 mg/dL (8.5-10.1) Total Bilirubin 0.3 mg/dL (0.2-1.0) Aspartate Amino Transferase (AST) 8 U/L (15-37) L Alanine Aminotransferase (ALT) 14 U/L (14-59) Alkaline Phosphatase 88 U/L (46-116) Total Protein 7.4 g/dL (6.4-8.2) Albumin 3.3 g/dL (3.4-5.0) L Albumin/Globulin Ratio 0.8 (1.0-1.7) L Laboratory Tests 03/30/19 19:11 Laboratory Tests 03/30/19 19:11 EKG EKG [] Radiology/Procedures Radiology/Procedures [][facility] [address] [place] [address] IMAGING REPORT Signed PATIENT: LONDON BONDS ACCOUNT: [id number] : 1955 LOCATION: ER AGE: 63 SEX: F EXAM STATUS: REG ER ORD. PHYSICIAN: JESSICA XIONG APRN REASON: L flank pain PROCEDURE: CT ABDOMEN PELVIS WO CONTRAST EXAM: CT Abdomen and Pelvis without IV contrast CLINICAL HISTORY: Left flank pain. COMPARISON: none TECHNIQUE: Helical CT of the abdomen and pelvis without intravenous contrast. Axial, coronal and sagittal reformatted images were generated. PQRS compliance statement - One or more of the following individualized dose reduction techniques were utilized for this study: 1. Automated exposure control 2. Adjustment of the mA and/or kV according to patient size 3. Use of iterative reconstruction technique FINDINGS: Lack of intravenous contrast limits evaluation of solid organs, vasculature, and lymph nodes. Lower chest: Linear opacities in the lower lobes, middle lobe and lingula likely scarring/atelectasis. Abdomen and pelvis: Liver and biliary system: Focal hepatic low-attenuation along the falciform ligament likely focal fatty infiltration. Cholecystectomy clips are seen. No biliary ductal dilatation. Spleen: Unremarkable Pancreas: Unremarkable Adrenal glands: Unremarkable Kidneys: The kidneys are atrophic bilaterally. Multiple renal cystic lesions are seen. Lymph nodes/retroperitoneum: No abdominal or pelvic lymphadenopathy. Vessels: Aorta is grossly normal in caliber with intermittent atherosclerotic calcifications. Bowel/Peritoneal cavity: Colonic diverticula are seen. Infiltration is seen about colonic diverticula in the left mid descending colon consistent with acute diverticulitis. Appendix is is not seen. No free intraperitoneal gas or abdominal or pelvic ascites.No loculated abdominal or pelvic fluid collection is seen. Abdominal wall: Small fat-containing periumbilical hernia is seen. Bladder: Bladder is unremarkable. Bones: Degenerative changes of the spine are seen. IMPRESSION: Changes of acute diverticulitis of the mid descending colon without evidence for associated free or loculated abdominal or pelvic collection or free intraperitoneal gas. Electronically signed by: Michael Echols MD (03/30/2019 7:45 PM) [id number] DICTATED and SIGNED BY: MICHAEL ECHOLS MD DATE: 03/30/191944 Course & Med Decision Making Course & Med Decision Making Pertinent Labs and Imaging studies reviewed. (See chart for details) Will get labs, CT scan, and will give supportive care. CT scan shows Diverticulitis. Dragon Disclaimer Dragon Disclaimer This electronic medical record was generated, in whole or in part, using a voice recognition dictation system. Departure Departure Impression: Primary Impression: Acute diverticulitis Disposition: HOME, SELF-CARE Condition: STABLE Referrals: UNKNOWN PCP NAME (PCP) Patient Instructions: Diverticulitis Additional Instructions: Thank you for visiting [facility]. We appreciate you trusting us with your care. If any additional problems come up don't hesitate to return to visit us. Please follow up with your primary care provider so they can plan additional care if needed and know about the problem that you had. If symptoms worsen come back to the Emergency Department. Any concerning symptoms that start such as chest pain, shortness of air, weakness or numbness on one side of the body, running high fevers or any other concerning symptoms return to the ER. You have been prescribed an antibiotic today to help fight your infection. Please take all of the antibiotic as directed. If after 48 hours the infection is not improving, please return for more care. If the infection worsens, return to ER for additional care. Scripts Hydrocodone/Apap 5-325 (NORCO 5-325 TABLET) 1 Each Tablet 1 TAB PO PRN Q6HRS PRN for PAIN for 3 Days, #10 TAB 0 Refills Prov: JESSICA XIONG APRN 03/30/19 Amoxicillin/Potassium Clav (AUGMENTIN 875-125 TABLET) 1 Each Tablet 1 TAB PO BID for 10 Days, #20 TAB 0 Refills Prov: JESSICA XIONG APRN 03/30/19 JESSICA XIONG APRN Mar 30, 2019 18:13
[2019-03-30] MEDS ORDERED: fentaNYL PF VIAL 100 MCG/2 ML VIAL IV ONE (18:15)
[2019-03-30] MEDS ORDERED: ONDANSETRON PF 4 MG/2 ML VIAL. IV ONE (18:15)
[2019-03-30 18:20] LABS: BILIRUBIN,URINE NEGATIVE (NEG); CLARITY,URINE CLEAR; COLOR,URINE YELLOW; NITRITE,URINE NEGATIVE (NEG); PH,URINE 7.5; PROTEIN,URINE >=300 mg/dL (NEG-TRACE); UROBILINOGEN,URINE 0.2 mg/dL (0.2 mg/dL)
[2019-03-30 18:31] LABS: BACTERIA,URINE MANY /HPF (0-FEW); SQUAMOUS EPITHELIAL CELL,UR FEW /LPF
[2019-03-30 19:19] LABS: BASO # 0.1 x10^3/uL (0.0-0.2); BASO % 1 % (0-3); EOS # 0.2 x10^3/uL (0.0-0.7); EOS % 3 % (0-3); HEMATOCRIT 29.1 % (36.0-47.0); HEMOGLOBIN 9.6 g/dL (12.0-15.5); LYMPH # 2.2 x10^3/uL (1.0-4.8); LYMPH % 26 % (24-48); MEAN CORPUSCULAR HEMOGLOBIN 30 pg (25-35); MEAN CORPUSCULAR HGB CONC 33 g/dL (31-37); MEAN CORPUSCULAR VOLUME 91 fL (79-100); MONO # 0.7 x10^3/uL (0.0-1.1); MONO % 9 % (0-9); NEUT % 61 % (31-73); PLATELET COUNT 289 x10^3/uL (140-400); RED CELL DISTRIBUTION WIDTH 17.2 % (11.5-14.5); WHITE BLOOD COUNT 8.2 x10^3/uL (4.0-11.0)
[2019-03-30 19:35] LABS: CALCIUM 9.9 mg/dL (8.5-10.1); CREATININE 6.7 mg/dL (0.6-1.0); GFR 7.6; POTASSIUM 4.7 mmol/L (3.5-5.1)
[2019-03-30 19:41] LABS: ALBUMIN 3.3 g/dL (3.4-5.0); ALBUMIN/GLOBULIN RATIO 0.8 (1.0-1.7); TOTAL BILIRUBIN 0.3 mg/dL (0.2-1.0); TOTAL PROTEIN 7.4 g/dL (6.4-8.2)
--- NOTE | 2019-03-30 19:48 | RAD ---
EXAM: CT Abdomen and Pelvis without IV contrast CLINICAL HISTORY: Left flank pain. COMPARISON: none TECHNIQUE: Helical CT of the abdomen and pelvis without intravenous contrast. Axial, coronal and sagittal reformatted images were generated. PQRS compliance statement - One or more of the following individualized dose reduction techniques were utilized for this study: 1. Automated exposure control 2. Adjustment of the mA and/or kV according to patient size 3. Use of iterative reconstruction technique FINDINGS: Lack of intravenous contrast limits evaluation of solid organs, vasculature, and lymph nodes. Lower chest: Linear opacities in the lower lobes, middle lobe and lingula likely scarring/atelectasis. Abdomen and pelvis: Liver and biliary system: Focal hepatic low-attenuation along the falciform ligament likely focal fatty infiltration. Cholecystectomy clips are seen. No biliary ductal dilatation. Spleen: Unremarkable Pancreas: Unremarkable Adrenal glands: Unremarkable Kidneys: The kidneys are atrophic bilaterally. Multiple renal cystic lesions are seen. Lymph nodes/retroperitoneum: No abdominal or pelvic lymphadenopathy. Vessels: Aorta is grossly normal in caliber with intermittent atherosclerotic calcifications. Bowel/Peritoneal cavity: Colonic diverticula are seen. Infiltration is seen about colonic diverticula in the left mid descending colon consistent with acute diverticulitis. Appendix is is not seen. No free intraperitoneal gas or abdominal or pelvic ascites.No loculated abdominal or pelvic fluid collection is seen. Abdominal wall: Small fat-containing periumbilical hernia is seen. Bladder: Bladder is unremarkable. Bones: Degenerative changes of the spine are seen. IMPRESSION: Changes of acute diverticulitis of the mid descending colon without evidence for associated free or loculated abdominal or pelvic collection or free intraperitoneal gas. Electronically signed by: Michael Echols MD (03/30/2019 7:45 PM) [id number]
[2019-03-30 21:00] VITALS: BP 165/79
[2019-03-30] MEDS ORDERED: AMOX1TAB61 PO (21:13)
[2019-03-30] MEDS ORDERED: HYDR-3164 PO (21:15)
== END 2019-03-30 21:25 | disposition home or self-care (01) ==
LOC: ER 17:18
DX: K57.92 Diverticulitis of intestine, part unspecified, without perforation or abscess without bleeding (principal); I12.9 Hypertensive chronic kidney disease with stage 1 through stage 4 chronic kidney disease, or unspecified chronic kidney disease; E11.22 Type 2 diabetes mellitus with diabetic chronic kidney disease; N18.9 Chronic kidney disease, unspecified; Z99.2 Dependence on renal dialysis; E78.00 Pure hypercholesterolemia, unspecified; Z90.89 Acquired absence of other organs; Z90.49 Acquired absence of other specified parts of digestive tract; Z90.710 Acquired absence of both cervix and uterus; Z88.5 Allergy status to narcotic agent
CPT/HCPCS: 36415; 74176; 80053; 81001; 85025; 87086; 96374; 96375; 99284; J2405; J3010

== ENCOUNTER 2019-08-31 19:45 | Inpatient (IN) | payer MEDICARE ==
[~2019-08-31] VITALS: Ht 175.3 cm; Wt 108.0 kg
[~2019-08-31 19:45] MED LIST changes: +AMOX1TAB61 PO
--- NOTE | 2019-08-31 20:06 | PHYS DOC ---
Past Medical History Past Medical History: Anxiety, Diabetes-Type II, DVT, High Cholesterol, H ypertension, Kidney Infection, Renal Failure Additional Past Medical Histor: KIDNEY DISEASE, histoplasmosis Past Surgical History: Appendectomy, Cholecystectomy, Hysterectomy Additional Past Surgical Histo: RIGHT BREAST CA W/ LUMPECTOMY, RIGHT LUNG SX FOR TUMOR Smoking Status: Never Smoker Alcohol Use: Rarely Drug Use: None General Adult EDM: Chief Complaint: CHEST PAIN-CARDIAC NATURE HPI: HPI: Patient is a 63 year old who arrives via EMS from dialysis. Patient received approximately two thirds of her dialysis treatment and began having palpitations was described as her heart beating irregular and fast. Patient had a similar episode 2 weeks ago and never sought medical treatment. Patient has had a cough for 3 months. Patient's had shortness of breath today. Shortness of breath was worse when the palpitations started. Patient denies any pain. Patient had chronic diarrhea as well. Patient has no history of atrial fibrillation Review of Systems: Review of Systems: Constitutional: Denies fever or chills. [] Eyes: Denies change in visual acuity. [] HENT: Denies nasal congestion or sore throat. [] Respiratory: Complains of cough and shortness of breath Cardiovascular: Denies chest pain or edema. [] GI: Denies abdominal pain, nausea, vomiting, bloody stools but complains of diarrhea : Denies dysuria. [] Musculoskeletal: Denies back pain or joint pain. [] Integument: Denies rash. [] Neurologic: Denies headache, focal weakness or sensory changes. [] Endocrine: Denies polyuria or polydipsia. [] Lymphatic: Denies swollen glands. [] Psychiatric: Denies depression or anxiety. [] Heart Score: Risk Factors: Risk Factors: DM, Current or recent (<one month) smoker, HTN, HLP, family history of CAD, obesity. Risk Scores: Score 0 - 3: 2.5% MACE over next 6 weeks - Discharge Home Score 4 - 6: 20.3% MACE over next 6 weeks - Admit for Clinical Observation Score 7 - 10: 72.7% MACE over next 6 weeks - Early Invasive Strategies Allergies: Allergies: Allergies Coded Allergies Type Severity Reaction Last Updated Verified oxycodone Allergy Intermediate Itching 03/30/19 Yes codeine Allergy Mild nausea 03/30/19 Yes Physical Exam: PE: Constitutional: Well developed, well nourished, mild distress HENT: No trismus Eyes: Conjunctiva clear, EOMI Neck: Normal range of motion, no tenderness, supple, no stridor. [] Cardiovascular: Tachycardia, irregularly irregular Lungs & Thorax: No respiratory distress Abdomen: No distension Skin: Diffuse: Intact, no rash Back: Full ROM Extremities: Normal inspection, no edema, AV fistula in place. Neurologic: Alert and oriented X 3, normal motor function, , no focal deficits noted. Psychologic: Affect normal, judgement normal, mood normal. Current Patient Data: Labs: Laboratory Tests Test 08/31/19 20:35 White Blood Count 7.3 x10^3/uL Red Blood Count 3.61 x10^6/uL Hemoglobin 10.7 g/dL Hematocrit 32.0 % Mean Corpuscular Volume 89 fL Mean Corpuscular Hemoglobin 30 pg Mean Corpuscular Hemoglobin Concent 34 g/dL Red Cell Distribution Width 18.0 % Platelet Count 267 x10^3/uL Neutrophils (%) (Auto) 70 % Lymphocytes (%) (Auto) 21 % Monocytes (%) (Auto) 6 % Eosinophils (%) (Auto) 2 % Basophils (%) (Auto) 1 % Neutrophils # (Auto) 5.1 x10^3/uL Lymphocytes # (Auto) 1.5 x10^3/uL Monocytes # (Auto) 0.4 x10^3/uL Eosinophils # (Auto) 0.2 x10^3/uL Basophils # (Auto) 0.1 x10^3/uL Prothrombin Time 12.6 SEC Prothromb Time International Ratio 1.0 Activated Partial Thromboplast Time 34 SEC Sodium Level 140 mmol/L Potassium Level 3.9 mmol/L Chloride Level 100 mmol/L Carbon Dioxide Level 28 mmol/L Anion Gap 12 Blood Urea Nitrogen 32 mg/dL Creatinine 4.7 mg/dL Estimated GFR (Cockcroft-Gault) 11.4 BUN/Creatinine Ratio 7 Glucose Level 162 mg/dL Calcium Level 9.8 mg/dL Magnesium Level 2.1 mg/dL Total Bilirubin 0.6 mg/dL Aspartate Amino Transf (AST/SGOT) 10 U/L Alanine Aminotransferase (ALT/SGPT) 24 U/L Alkaline Phosphatase 75 U/L Creatine Kinase 35 U/L Troponin I Quantitative < 0.017 ng/mL FL-Kas-N-Type Natriuretic Peptide 4452 pg/mL Total Protein 7.9 g/dL Albumin 3.6 g/dL Albumin/Globulin Ratio 0.8 Lipase 376 U/L Thyroid Stimulating Hormone (TSH) 1.941 uIU/mL Current Medications Medications (Trade) Dose Ordered Sig/Kathleen Route PRN Reason Start Time Stop Time Status Last Admin Dose Admin Diltiazem HCl (Cardizem Iv Push) 15 mg 1X ONCE IVP 08/31/19 21:00 08/31/19 21:01 DC 08/31/19 20:47 Diltiazem HCl 125 mg/Sodium Chloride 125 ml @ 5 mls/hr 1X ONCE IV 08/31/19 21:00 09/01/19 21:59 08/31/19 20:47 Vital Signs: Vital Signs Date Time Temp Pulse Resp B/P (MAP) Pulse Ox O2 Delivery O2 Flow Rate FiO2 08/31/19 23:24 76 18 155/61 (92) 98 Room Air 08/31/19 22:54 82 18 128/52 (77) 97 Room Air 08/31/19 22:24 84 20 151/69 (96) 98 Room Air 08/31/19 21:54 88 20 145/73 (97) 98 Room Air 08/31/19 21:24 88 22 153/72 (99) 99 Room Air 08/31/19 20:54 120 20 144/85 (104) 98 Room Air 08/31/19 20:47 133 176/99 08/31/19 20:14 136 20 245/178 (200) 98 Room Air 08/31/19 19:45 98.1 141 18 187/105 (132) 99 Room Air 98.1 EKG: EKG: [] EKG interpreted by ut atrial fibrillation with a rate of 137, normal axis, nonspecific ST changes Repeat EKG at 2114 normal sinus rhythm with rate 86 normal axis normal intervals, nonspecific ST changes Radiology/Procedures: Radiology/Procedures: [][facility] [address] [place] [address] IMAGING REPORT Signed PATIENT: LONDON BONDS ACCOUNT: [id number] : 1955 LOCATION: ER AGE: 63 SEX: F EXAM STATUS: REG ER ORD. PHYSICIAN: SANCHEZ ROSS MD REASON: CHEST PAIN PROCEDURE: PORTABLE CHEST 1V Examination: PORTABLE CHEST 1V History: Reason: CHEST PAIN / Spl. Instructions: / History: Comparison/Correlation: 04/14/2018 AP view of the chest Findings: Upright portable frontal view chest is obtained. Right suprahilar suture material noted. No pneumothorax. Heart size is normal. Right costophrenic angle blunting is similar to the previous exam. Right postthoracotomy findings are evident. No pneumothorax or new pleural effusion. Impression: No infiltrate. No significant change. Electronically signed by: Bry Daigle MD (08/31/2019 8:37 PM) [facility] DICTATED and SIGNED BY: BRY DAIGLE MD DATE: 08/31/192036 Course & Med Decision Making: Course & Med Decision Making Pertinent Labs and Imaging studies reviewed. (See chart for details) [] 63-year-old female arrives from dialysis and atrial fibrillation with rapid ventricular response. Patient with rate control and conversion with Cardizem. This is patient's second episode in the last 2 weeks. I think patient be better served for admission to the hospital for further evaluation. Cardiac consult has been placed in the computer. Critical condition: A. fib with RVR, chronic kidney disease Critical interventions: Diltiazem bolus and drip and admission to the cardiac unit. Dragon Disclaimer: Dragon Disclaimer: This electronic medical record was generated, in whole or in part, using a voice recognition dictation system. Departure Departure Impression: Primary Impression: Atrial fibrillation with RVR Disposition: ADMITTED INPATIENT Admitting Physician: AMI ([facility]) Condition: STABLE Referrals: AMILCAR SKINNER MD (PCP) Justicifation of Admission Dx: Justifications for Admission: Justification of Admission Dx: Yes SANCHEZ ROSS MD Aug 31, 2019 20:06
--- NOTE | 2019-08-31 20:40 | RAD ---
Examination: PORTABLE CHEST 1V History: Reason: CHEST PAIN / Spl. Instructions: / History: Comparison/Correlation: 04/14/2018 AP view of the chest Findings: Upright portable frontal view chest is obtained. Right suprahilar suture material noted. No pneumothorax. Heart size is normal. Right costophrenic angle blunting is similar to the previous exam. Right postthoracotomy findings are evident. No pneumothorax or new pleural effusion. Impression: No infiltrate. No significant change. Electronically signed by: Bry Hernandez MD (08/31/2019 8:37 PM) [facility]
[2019-08-31 20:42] LABS: BASO # 0.1 x10^3/uL (0.0-0.2); BASO % 1 % (0-3); EOS # 0.2 x10^3/uL (0.0-0.7); EOS % 2 % (0-3); HEMOGLOBIN 10.7 g/dL (12.0-15.5); LYMPH # 1.5 x10^3/uL (1.0-4.8); LYMPH % 21 % (24-48); MEAN CORPUSCULAR HEMOGLOBIN 30 pg (25-35); MEAN CORPUSCULAR HGB CONC 34 g/dL (31-37); MEAN CORPUSCULAR VOLUME 89 fL (79-100); MONO # 0.4 x10^3/uL (0.0-1.1); MONO % 6 % (0-9); NEUT # 5.1 x10^3/uL (1.8-7.7); NEUT % 70 % (31-73); PLATELET COUNT 267 x10^3/uL (140-400); RED BLOOD COUNT 3.61 x10^6/uL (3.50-5.40); WHITE BLOOD COUNT 7.3 x10^3/uL (4.0-11.0)
[2019-08-31 20:52] LABS: PROTHROMBIN TIME PATIENT 12.6 SEC (11.7-14.0)
[2019-08-31 20:53] LABS: CALCIUM 9.8 mg/dL (8.5-10.1); CREATININE 4.7 mg/dL (0.6-1.0); GFR 11.4; POTASSIUM 3.9 mmol/L (3.5-5.1)
[2019-08-31 20:59] LABS: ALBUMIN 3.6 g/dL (3.4-5.0); ALBUMIN/GLOBULIN RATIO 0.8 (1.0-1.7); MAGNESIUM 2.1 mg/dL (1.8-2.4); TOTAL BILIRUBIN 0.6 mg/dL (0.2-1.0); TOTAL PROTEIN 7.9 g/dL (6.4-8.2)
[2019-08-31] MEDS ORDERED: dilTIAZem IV PUSH 25 MG/5 ML VIAL IVP ONE (21:00)
[2019-08-31] MEDS ORDERED: DILTIAZEM HCL 125 MG in IV NORMAL SALINE 100ML 100 ML IV ONE (21:00)
[2019-09-01] VITALS (14 sets, daily range): BP systolic 112–155; BP diastolic 53–86
--- NOTE | 2019-09-01 01:27 | EKG ---
[facility] [address] [place] [address] Test Date: 2019-08-31 Test Time: 19:51:45 Pat Name: LONDON BONDS Department: Room: Gender: F Composition Floor Layer: : 1955 Requested By: SANCHEZ ROSS Order Number: [id number] Reading MD: Measurements Intervals [place] Rate: 137 P: GA: QRS: 39 QRSD: 82 T: 62 QT: 310 QTc: 470 Interpretive Statements IRREGULAR RHYTHM, NO P-WAVE FOUND NO SPECIFIC ECG ABNORMALITIES RI6.02 No previous ECG available for comparison
[2019-09-01] MEDS ORDERED: CITA20TA6 PO (07:53)
[2019-09-01] MEDS ORDERED: SUCR500T PO (07:53)
[2019-09-01] MEDS ORDERED: LORazepam 0.5 MG TABLET PO PRN (08:00)
[2019-09-01] MEDS ORDERED: DEXTROSE 50% 25 GM / 50ML DISP.SYRIN. IV PRN (08:00)
[2019-09-01] MEDS ORDERED: ONDANSETRON PF 4 MG/2 ML VIAL. IV PRN (08:00)
[2019-09-01] MEDS ORDERED: CARVEDILOL 12.5 MG TABLET. PO SCH (08:00)
[2019-09-01] MEDS ORDERED: guaiFENesin ORAL 200 MG/10 ML LIQUID. PO PRN (08:00)
[2019-09-01] MEDS ORDERED: ACETAMINOPHEN 325 MG TABLET. PO PRN (08:00)
[2019-09-01] MEDS ORDERED: ALBUTEROL SULFATE 2.5 MG/3 ML NEBU. NEB PRN (08:00)
--- NOTE | 2019-09-01 08:53 | PDOC1 ---
History and Physical Date of Admission Date of Admission September 01, 2019 Identification/Chief Complaint Chief Complaint My heart was racing Source Source: Chart review, Patient History of Present Illness History of Present Illness Patient is a 63-year-old female with past medical history of end-stage renal disease on hemodialysis, history of hypertension and type 2 diabetes who was in her usual state of health until approximately 2 weeks ago when she presented with palpitations and sensation of her heart racing. The patient recovered from that episode and consulted at that time and she was told to go to the emergency department if symptoms would recur. Patient does not endorse a history of atrial fibrillation prior to that event, the patient was having her dialysis treatment yesterday when she presented same symptoms. She was found to be in atrial fibrillation RVR and transferred from dialysis center to our emergency department. We were asked to admit for further evaluation and treatment. The patient also reported chest discomfort on Friday 2 days prior to her visit to the emergency department that lasted less than a minute and it was a pressure sensation no radiation to the carotids no radiation to the jaw or the arm. The patient denied dyspnea no sensation of impending doom no nausea or vomiting reported with the discomfort. Patient at the time of my evaluation is in no acute distress and she is back to normal sinus rhythm in the mid 80s and asking about being dismissed from the hospital. I have explained the need for cardiological evaluation and she acknowledged understanding. Plan of care explained in detail and all of her concerns were addressed to the best of my abilities Past Medical History Cardiovascular: HTN GI: No pertinent hx Heme/Onc: Anemia NOS Hepatobiliary: No pertinent hx Psych: No pertinent hx Rheumatologic: No pertinent hx Infectious disease: No pertinent hx Renal/: Chronic renal failure Endocrine: No pertinent hx Past Surgical History Past Surgical History: Other Family History Family History: Hypertension, Adopted Social History Smoke: No ALCOHOL: none Drugs: None Current Problem List Problem List Problems Medical Problems: (1) Atrial fibrillation with RVR Status: Acute Current Medications Current Medications Current Medications Medications (Trade) Dose Ordered Sig/Kathleen Start Time Stop Time Status Last Admin Dose Admin Acetaminophen (Tylenol) 650 mg PRN Q4HRS PRN 09/01/19 08:00 Albuterol Sulfate (Ventolin Neb Soln) 2.5 mg PRN Q4HRS PRN 09/01/19 08:00 Aspirin (Aspirin Chewable) 81 mg DAILY 09/01/19 09:00 09/01/19 08:23 81 MG Atorvastatin Calcium (Lipitor) 40 mg QHS 09/01/19 21:00 Carvedilol (Coreg) 12.5 mg BIDWMEALS 09/01/19 08:00 09/01/19 08:23 12.5 MG Citalopram Hydrobromide (CeleXA) 20 mg DAILY 09/01/19 09:00 09/01/19 08:23 20 MG Dextrose (Dextrose 50%-Water Syringe) 12.5 gm PRN Q15MIN PRN 09/01/19 08:00 Diltiazem HCl (Cardizem Iv Push) 15 mg 1X ONCE 08/31/19 21:00 08/31/19 21:01 DC 08/31/19 20:47 15 MG Diltiazem HCl 125 mg/Sodium Chloride 125 ml @ 5 mls/hr 1X ONCE 08/31/19 21:00 09/01/19 21:59 08/31/19 20:47 5 MLS/HR Guaifenesin (Robitussin) 200 mg PRN Q4HRS PRN 09/01/19 08:00 Insulin Glargine (Lantus Syringe) 24 unit QHS 09/01/19 21:00 Insulin Human Lispro (HumaLOG) 10 units TIDWMEALS 09/01/19 12:00 Lorazepam (Ativan) 0.5 mg PRN Q4HRS PRN 09/01/19 08:00 Non-Formulary Medication (Sucroferric Oxyhydroxide (Velphoro)) 500 mg TIDAC 09/01/19 11:30 UNV Ondansetron HCl (Zofran) 4 mg PRN Q4HRS PRN 09/01/19 08:00 Allergies Allergies Allergies Coded Allergies Type Severity Reaction Last Updated Verified oxycodone Allergy Intermediate Itching 03/30/19 Yes codeine Allergy Mild nausea 03/30/19 Yes ROS Review of System CONSTITUTIONAL: No fever or chills EYES: No recent changes SKIN: No rash or itching CARDIOVASCULAR: No chest pain, syncope, positive for palpitations, no edema RESPIRATORY: No SOB or cough GASTROINTESTINAL: No nausea, vomiting or abdominal pain NEUROLOGICAL: No headaches or weakness ENDOCRINE: No cold or heat intolerance GENITOURINARY: No urgency or frequency of urination MUSCULOSKELETAL: No back pain or joint pain LYMPHATICS: No enlarged lymph nodes PSYCHIATRIC: No anxiety or depression Physical Exam Physical Exam GEN.: No apparent distress. Alert and oriented. HEENT: Head is normocephalic, atraumatic NECK: Supple. LUNGS: Clear to auscultation. HEART: RRR, S1, S2 present. Peripheral pulses intact ABDOMEN: Soft, nontender. Positive bowel sounds. EXTREMITIES: Without any cyanosis. NEUROLOGIC: Normal speech, normal tone PSYCHIATRIC: Normal affect, normal mood. SKIN: No ulcerations Vitals Vitals Vital Signs Date Time Temp Pulse Resp B/P (MAP) Pulse Ox O2 Delivery O2 Flow Rate FiO2 09/01/19 08:23 91 09/01/19 05:00 150/74 (99) 09/01/19 03:00 98.9 17 96 Room Air 98.9 Labs Labs Laboratory Tests Test 08/31/19 20:35 08/31/19 20:41 09/01/19 07:31 White Blood Count 7.3 x10^3/uL (4.0-11.0) Red Blood Count 3.61 x10^6/uL (3.50-5.40) Hemoglobin 10.7 g/dL (12.0-15.5) Hematocrit 32.0 % (36.0-47.0) Mean Corpuscular Volume 89 fL (79-100) Mean Corpuscular Hemoglobin 30 pg (25-35) Mean Corpuscular Hemoglobin Concent 34 g/dL (31-37) Red Cell Distribution Width 18.0 % (11.5-14.5) Platelet Count 267 x10^3/uL (140-400) Neutrophils (%) (Auto) 70 % (31-73) Lymphocytes (%) (Auto) 21 % (24-48) Monocytes (%) (Auto) 6 % (0-9) Eosinophils (%) (Auto) 2 % (0-3) Basophils (%) (Auto) 1 % (0-3) Neutrophils # (Auto) 5.1 x10^3/uL (1.8-7.7) Lymphocytes # (Auto) 1.5 x10^3/uL (1.0-4.8) Monocytes # (Auto) 0.4 x10^3/uL (0.0-1.1) Eosinophils # (Auto) 0.2 x10^3/uL (0.0-0.7) Basophils # (Auto) 0.1 x10^3/uL (0.0-0.2) Prothrombin Time 12.6 SEC (11.7-14.0) Prothromb Time International Ratio 1.0 (0.8-1.1) Activated Partial Thromboplast Time 34 SEC (24-38) Sodium Level 140 mmol/L (136-145) Potassium Level 3.9 mmol/L (3.5-5.1) Chloride Level 100 mmol/L (98-107) Carbon Dioxide Level 28 mmol/L (21-32) Anion Gap 12 (6-14) Blood Urea Nitrogen 32 mg/dL (7-20) Creatinine 4.7 mg/dL (0.6-1.0) Estimated GFR (Cockcroft-Gault) 11.4 BUN/Creatinine Ratio 7 (6-20) Glucose Level 162 mg/dL (70-99) Calcium Level 9.8 mg/dL (8.5-10.1) Magnesium Level 2.1 mg/dL (1.8-2.4) Total Bilirubin 0.6 mg/dL (0.2-1.0) Aspartate Amino Transf (AST/SGOT) 10 U/L (15-37) Alanine Aminotransferase (ALT/SGPT) 24 U/L (14-59) Alkaline Phosphatase 75 U/L (46-116) Creatine Kinase 35 U/L (26-192) Troponin I Quantitative < 0.017 ng/mL (0.000-0.055) UO-Kuu-K-Type Natriuretic Peptide 4452 pg/mL (0-124) Total Protein 7.9 g/dL (6.4-8.2) Albumin 3.6 g/dL (3.4-5.0) Albumin/Globulin Ratio 0.8 (1.0-1.7) Lipase 376 U/L (73-393) Thyroid Stimulating Hormone (TSH) 1.941 uIU/mL (0.358-3.74) Bedside Troponin I 0.06 ng/ml (<0.08) Glucose (Fingerstick) 177 mg/dL (70-99) Laboratory Tests Test 08/31/19 20:35 08/31/19 20:41 09/01/19 07:31 White Blood Count 7.3 x10^3/uL (4.0-11.0) Red Blood Count 3.61 x10^6/uL (3.50-5.40) Hemoglobin 10.7 g/dL (12.0-15.5) Hematocrit 32.0 % (36.0-47.0) Mean Corpuscular Volume 89 fL (79-100) Mean Corpuscular Hemoglobin 30 pg (25-35) Mean Corpuscular Hemoglobin Concent 34 g/dL (31-37) Red Cell Distribution Width 18.0 % (11.5-14.5) Platelet Count 267 x10^3/uL (140-400) Neutrophils (%) (Auto) 70 % (31-73) Lymphocytes (%) (Auto) 21 % (24-48) Monocytes (%) (Auto) 6 % (0-9) Eosinophils (%) (Auto) 2 % (0-3) Basophils (%) (Auto) 1 % (0-3) Neutrophils # (Auto) 5.1 x10^3/uL (1.8-7.7) Lymphocytes # (Auto) 1.5 x10^3/uL (1.0-4.8) Monocytes # (Auto) 0.4 x10^3/uL (0.0-1.1) Eosinophils # (Auto) 0.2 x10^3/uL (0.0-0.7) Basophils # (Auto) 0.1 x10^3/uL (0.0-0.2) Prothrombin Time 12.6 SEC (11.7-14.0) Prothromb Time International Ratio 1.0 (0.8-1.1) Activated Partial Thromboplast Time 34 SEC (24-38) Sodium Level 140 mmol/L (136-145) Potassium Level 3.9 mmol/L (3.5-5.1) Chloride Level 100 mmol/L (98-107) Carbon Dioxide Level 28 mmol/L (21-32) Anion Gap 12 (6-14) Blood Urea Nitrogen 32 mg/dL (7-20) Creatinine 4.7 mg/dL (0.6-1.0) Estimated GFR (Cockcroft-Gault) 11.4 BUN/Creatinine Ratio 7 (6-20) Glucose Level 162 mg/dL (70-99) Calcium Level 9.8 mg/dL (8.5-10.1) Magnesium Level 2.1 mg/dL (1.8-2.4) Total Bilirubin 0.6 mg/dL (0.2-1.0) Aspartate Amino Transf (AST/SGOT) 10 U/L (15-37) Alanine Aminotransferase (ALT/SGPT) 24 U/L (14-59) Alkaline Phosphatase 75 U/L (46-116) Creatine Kinase 35 U/L (26-192) Troponin I Quantitative < 0.017 ng/mL (0.000-0.055) VT-Fzt-P-Type Natriuretic Peptide 4452 pg/mL (0-124) Total Protein 7.9 g/dL (6.4-8.2) Albumin 3.6 g/dL (3.4-5.0) Albumin/Globulin Ratio 0.8 (1.0-1.7) Lipase 376 U/L (73-393) Thyroid Stimulating Hormone (TSH) 1.941 uIU/mL (0.358-3.74) Bedside Troponin I 0.06 ng/ml (<0.08) Glucose (Fingerstick) 177 mg/dL (70-99) VTE Prophylaxis Ordered VTE Prophylaxis Devices: No VTE Pharmacological Prophylaxi: Yes Assessment/Plan Assessment/Plan Atrial fibrillation with rapid ventricular response converted now to normal sinus rhythm End-stage renal disease on hemodialysis Diabetes mellitus type 2 insulin requiring History of anxiety History of DVT Normocytic anemia of chronic disease Plan Resume home medication Follow recommendations from cardiology consult Nephrology consultation has also been request Patient does not seem to be overloaded and most likely will not require dialysis at the present time Further recommendations based on the clinical course DVT prophylaxis with heparin Justicifation of Admission Dx: Justifications for Admission: Justification of Admission Dx: Yes KEZIA SMITH MD Sep 01, 2019 08:53
[2019-09-01] MEDS ORDERED: HEPARIN for SUB-Q USE 5,000 UNIT/ML VIAL. SQ SCH (09:00)
[2019-09-01] MEDS ORDERED: CITALOPRAM 20 MG TABLET. PO SCH (09:00)
[2019-09-01] MEDS ORDERED: ASPIRIN CHEWABLE 81 MG TABLET. PO SCH (09:00)
[2019-09-01] MEDS: BENZONATATE 100 MG CAPSULE. PO PRN ×2 (09:45→19:56)
[2019-09-01] MEDS: INSULIN LISPRO 300 UNITS/3 ML VIAL. SQ SCH ×5 (09:51→18:06)
[2019-09-01] MEDS ORDERED: NON FORMULARY ITEM (Sucroferric Oxyhydroxide (Velphoro) 500 MG) PO SCH (11:30)
--- NOTE | 2019-09-01 11:45 | PDOC2 ---
BLAZE GUZMAN MULE DEVELOPER 09/01/19 1145: CARDIAC CONSULT DATE OF CONSULT Date of Consult DATE: 09/01/19 TIME: 11:33 REASON FOR CONSULT Reason for Consult: AFIB REFERRING PHYSICIAN Referring Physician: Alana SOURCE Source: Chart review, Patient HISTORY OF PRESENT ILLNESS HISTORY OF PRESENT ILLNESS This is a pleasant 63 yo female admitted for complains of palpitations. Reports that Friday she had this piercing chest pain and also some SOA. She gets dialysis Friday, , and Friday and it appears that in the last month she gets this palpitations mostly during HD. Reports no nausea, vomiting or diarrhea and no recent fever or chills and no intractable coughing. No hx of arrhythmias or CAD. No hx of VTE but she did have clots in her dialysis line treated with blood thinner in the past. She has HTN, HLP and DM2. She started HD 3 yrs ago due to PKD and reports that she is trying to get to the transplant list. Her last stress test was 3 yrs ago. She does not see any watch train assembler. She also has YVON but could not tolerate CPAP in the past. To add she takes coreg and hold her morning dose during dialysis days. PAST MEDICAL HISTORY Cardiovascular: HTN, Hyperlipidemia Pulmonary: Other (YVON; intolerant to CPAP) CENTRAL NERVOUS SYSTEM: Other (No pertinent history) GI: Constipation Heme/Onc: Anemia NOS, Cancer (breast ttreated with radiation and lumpectomy) Hepatobiliary: No pertinent hx Psych: No pertinent hx Musculoskeletal: Osteoarthritis Rheumatologic: Fibromyalgia Infectious disease: No pertinent hx ENT: No pertinent hx Renal/: Chronic renal failure, Other (PKD) Endocrine: Diabetes (2) Dermatology: No pertinent hx PAST SURGICAL HISTORY Past Surgical History: Appendectomy, Cholecystectomy, Hysterectomy, Other ([place] dialysis fistula; lung surgery due to histoplasmosis) FAMILY HISTORY Family History: Diabetes SOCIAL HISTORY Smoke: No ALCOHOL: occassional Drugs: None Lives: with Family (daughter) CURRENT MEDICATIONS CURRENT MEDICATIONS Current Medications Medications (Trade) Dose Ordered Sig/Kathleen Route PRN Reason Start Time Stop Time Status Last Admin Dose Admin Diltiazem HCl (Cardizem Iv Push) 15 mg 1X ONCE IVP 08/31/19 21:00 08/31/19 21:01 DC 08/31/19 20:47 Diltiazem HCl 125 mg/Sodium Chloride 125 ml @ 5 mls/hr 1X ONCE IV 08/31/19 21:00 09/01/19 21:59 08/31/19 20:47 Insulin Human Lispro (HumaLOG) 0-7 UNITS TIDWMEALS SQ 09/01/19 08:00 09/01/19 09:51 Aspirin (Aspirin Chewable) 81 mg DAILY PO 09/01/19 09:00 09/01/19 08:23 Carvedilol (Coreg) 12.5 mg BIDWMEALS PO 09/01/19 08:00 09/01/19 10:18 DC 09/01/19 08:23 Citalopram Hydrobromide (CeleXA) 20 mg DAILY PO 09/01/19 09:00 09/01/19 08:23 Heparin Sodium (Porcine) (Heparin Sodium) 5,000 unit Q12HR SQ 09/01/19 09:00 09/01/19 09:00 Benzonatate (Tessalon Perle) 100 mg [id number] PRN PO COUGH 09/01/19 09:45 09/01/19 09:45 ALLERGIES ALLERGIES: Coded Allergies: oxycodone (Verified Allergy, Intermediate, Itching, 03/30/19) codeine (Verified Allergy, Mild, nausea, 03/30/19) ROS Review of System 14 point ROS evaluated with pertinent positives noted per HPI PHYSICAL EXAM General: Alert, Oriented X3, Cooperative, No acute distress HEENT: Atraumatic, Mucous membr. moist/pink Lungs: Clear to auscultation, Normal air movement Heart: Regular rate (SR), Normal S1, Normal S2, No murmurs Abdomen: Soft, No tenderness Extremities: No cyanosis, No edema Skin: No breakdown, No significant lesion Neuro: Normal speech, Sensation intact Psych/Mental Status: Mental status NL, Mood NL MUSCULOSKELETAL: Osteoarthritic changes both hands VITALS/I&O VITALS/I&O: Vital Signs Date Time Temp Pulse Resp B/P (MAP) Pulse Ox O2 Delivery O2 Flow Rate FiO2 09/01/19 11:28 94 Room Air 09/01/19 08:23 91 09/01/19 07:00 97.6 16 141/84 (103) 97.6 I & O 08/31/19 08/31/19 09/01/19 14:59 22:59 06:59 Intake Total 800 ml Output Total 200 ml Balance 600 ml LABS Lab: Laboratory Tests Test 08/31/19 20:35 08/31/19 20:41 09/01/19 07:31 White Blood Count 7.3 x10^3/uL (4.0-11.0) Red Blood Count 3.61 x10^6/uL (3.50-5.40) Hemoglobin 10.7 g/dL (12.0-15.5) L Hematocrit 32.0 % (36.0-47.0) L Mean Corpuscular Volume 89 fL (79-100) Mean Corpuscular Hemoglobin 30 pg (25-35) Mean Corpuscular Hemoglobin Concent 34 g/dL (31-37) Red Cell Distribution Width 18.0 % (11.5-14.5) H Platelet Count 267 x10^3/uL (140-400) Neutrophils (%) (Auto) 70 % (31-73) Lymphocytes (%) (Auto) 21 % (24-48) L Monocytes (%) (Auto) 6 % (0-9) Eosinophils (%) (Auto) 2 % (0-3) Basophils (%) (Auto) 1 % (0-3) Neutrophils # (Auto) 5.1 x10^3/uL (1.8-7.7) Lymphocytes # (Auto) 1.5 x10^3/uL (1.0-4.8) Monocytes # (Auto) 0.4 x10^3/uL (0.0-1.1) Eosinophils # (Auto) 0.2 x10^3/uL (0.0-0.7) Basophils # (Auto) 0.1 x10^3/uL (0.0-0.2) Prothrombin Time 12.6 SEC (11.7-14.0) Prothrombin Time INR 1.0 (0.8-1.1) Activated Partial Thromboplast Time 34 SEC (24-38) Sodium Level 140 mmol/L (136-145) Potassium Level 3.9 mmol/L (3.5-5.1) Chloride Level 100 mmol/L (98-107) Carbon Dioxide Level 28 mmol/L (21-32) Anion Gap 12 (6-14) Blood Urea Nitrogen 32 mg/dL (7-20) H Creatinine 4.7 mg/dL (0.6-1.0) H Estimated GFR (Cockcroft-Gault) 11.4 BUN/Creatinine Ratio 7 (6-20) Glucose Level 162 mg/dL (70-99) H Calcium Level 9.8 mg/dL (8.5-10.1) Magnesium Level 2.1 mg/dL (1.8-2.4) Total Bilirubin 0.6 mg/dL (0.2-1.0) Aspartate Amino Transferase (AST) 10 U/L (15-37) L Alanine Aminotransferase (ALT) 24 U/L (14-59) Alkaline Phosphatase 75 U/L (46-116) Creatine Kinase 35 U/L (26-192) Troponin I Quantitative < 0.017 ng/mL (0.000-0.055) BS-Htj-S-Type Natriuretic Peptide 4452 pg/mL (0-124) H Total Protein 7.9 g/dL (6.4-8.2) Albumin 3.6 g/dL (3.4-5.0) Albumin/Globulin Ratio 0.8 (1.0-1.7) L Lipase 376 U/L (73-393) Thyroid Stimulating Hormone (TSH) 1.941 uIU/mL (0.358-3.74) POC Troponin I 0.06 ng/ml (<0.08) Glucose (Fingerstick) 177 mg/dL (70-99) H Laboratory Tests 08/31/19 20:35 Laboratory Tests 08/31/19 20:35 ASSESSMENT/PLAN ASSESSMENT/PLAN 1. PAFIB: new finding. Treated with cardizem drip, now SR. 2. HTN: controlled 3. HLP 4. DM2 5. Chest pain/palpitations 6. Hx of YVON: CPAP intolerant 7. ESRD: per HD Recommendations 1. TTE today. If unremarkable then may DC this afternoon 2. MCOT to set prior to DC and plan for outpt MPI 3. DC coreg and change to metoprolol. Home ASA for now and will note AFIB burden and reevaluate for DOAC need. 4. Consider retesting for YVON for CPAP consideration. NOEL CHATMAN MD 09/02/19 0809: CARDIAC CONSULT ASSESSMENT/PLAN ASSESSMENT/PLAN Late entry for 09/01/2019 Pt. seen and examined. Agree with above MOLDING LINE ASSISTANT note. Supportive care. Thanks BLAZE GUZMAN APRN Sep 01, 2019 11:45 NOEL CHATMAN MD Sep 02, 2019 08:09
--- NOTE | 2019-09-01 11:56 | PDOC2 ---
CONSULT Date of Consult Date of Consult DATE: 09/01/19 TIME: 11:52 Reason for Consult Reason for Consult: ESRD Referring Physician Referring Physician: ILA Identification/Chief Complaint Chief Complaint AFIB Source Source: Chart review, Patient History of Present Illness Reason for Visit: THIS IS A 63 YR OLD PT WITH ESRD. HAS BEEN ON HD FOR 3 YEARS. ESRD DUE TO DM II AND HTN. ? HX OF ADPKD WELL. HAS A L ARM BB AVF FOR HD. WAS AT HD YESTERDAY AND IT WAS STOPPED MID WAY DUE TO RAPID HR. NOTED TO BE IN AFIB RVR AND BEING EVALUATED BY CARDIOLOGY CURRENTLY. LABS ARE C/W ESRD Past Medical History Cardiovascular: HTN, Hyperlipidemia Pulmonary: Other (YVON; intolerant to CPAP) CENTRAL NERVOUS SYSTEM: Other (No pertinent history) GI: Constipation Heme/Onc: Anemia NOS, Cancer (breast ttreated with radiation and lumpectomy) Hepatobiliary: No pertinent hx Psych: No pertinent hx Musculoskeletal: Osteoarthritis Rheumatologic: Fibromyalgia Infectious disease: No pertinent hx ENT: No pertinent hx Renal/: Chronic renal failure, Other (PKD) Endocrine: Diabetes (2) Dermatology: No pertinent hx Past Surgical History Past Surgical History: Appendectomy, Cholecystectomy, Hysterectomy, Other (LA dialysis fistula; lung surgery due to histoplasmosis) Family History Family History: Diabetes Social History No ALCOHOL: occassional Drugs: None Lives: with Family (daughter) Current Problem List Problem List Problems Medical Problems: (1) Atrial fibrillation with RVR Status: Acute Current Medications Current Medications Current Medications Diltiazem HCl (Cardizem Iv Push) 15 mg 1X ONCE IVP Last administered on 08/31/19at 20:47; Start 08/31/19 at 21:00; Stop 08/31/19 at 21:01; Status DC Diltiazem HCl 125 mg/Sodium Chloride 125 ml @ 5 mls/hr 1X ONCE IV Last administered on 08/31/19at 20:47; Start 08/31/19 at 21:00; Stop 09/01/19 at 21:59 Ondansetron HCl (Zofran) 4 mg PRN Q4HRS PRN IV NAUSEA/VOMITING; Start 09/01/19 at 08:00 Acetaminophen (Tylenol) 650 mg PRN Q4HRS PRN PO TEMP OVER 100.4F OR MILD PAIN; Start 09/01/19 at 08:00 Albuterol Sulfate (Ventolin Neb Soln) 2.5 mg PRN Q4HRS PRN NEB SHORTNESS OF BREATH; Start 09/01/19 at 08:00 Guaifenesin (Robitussin) 200 mg PRN Q4HRS PRN PO COUGH; Start 09/01/19 at 08:00 Lorazepam (Ativan) 0.5 mg PRN Q4HRS PRN PO ANXIETY / AGITATION; Start 09/01/19 at 08:00 Insulin Human Lispro (HumaLOG) 0-7 UNITS TIDWMEALS SQ Last administered on 09/01/19at 09:51; Start 09/01/19 at 08:00 Dextrose (Dextrose 50%-Water Syringe) 12.5 gm PRN Q15MIN PRN IV SEE COMMENTS; Start 09/01/19 at 08:00 Aspirin (Aspirin Chewable) 81 mg DAILY PO Last administered on 09/01/19at 08:23; Start 09/01/19 at 09:00 Atorvastatin Calcium (Lipitor) 40 mg QHS PO ; Start 09/01/19 at 21:00 Carvedilol (Coreg) 12.5 mg BIDWMEALS PO Last administered on 09/01/19at 08:23; Start 09/01/19 at 08:00; Stop 09/01/19 at 10:18; Status DC Citalopram Hydrobromide (CeleXA) 20 mg DAILY PO Last administered on 09/01/19at 08:23; Start 09/01/19 at 09:00 Insulin Glargine (Lantus Syringe) 24 unit QHS SQ ; Start 09/01/19 at 21:00 Insulin Human Lispro (HumaLOG) 10 units TIDWMEALS SQ ; Start 09/01/19 at 12:00 Non-Formulary Medication (Sucroferric Oxyhydroxide (Velphoro)) 500 mg TIDAC PO ; Start 09/01/19 at 11:30; Status UNV Heparin Sodium (Porcine) (Heparin Sodium) 5,000 unit Q12HR SQ Last administered on 09/01/19at 09:00; Start 09/01/19 at 09:00 Benzonatate (Tessalon Perle) 100 mg [id number] PRN PO COUGH Last administered on 09/01/19at 09:45; Start 09/01/19 at 09:45 Metoprolol Tartrate (Lopressor) 50 mg BID PO ; Start 09/01/19 at 21:00 Active Scripts Active Reported Citalopram Hbr (Citalopram Hydrobromide) 20 Mg Tablet 20 Mg PO DAILY Velphoro (Sucroferric Oxyhydroxide) 500 Mg Tab.chew 500 Mg PO TIDAC Carvedilol (Carvedilol) 12.5 Mg Tablet 12.5 Mg PO BIDWMEALS Humalog (Insulin Lispro) 100 Unit/1 Ml Cartridge 10 Unit SQ TIDWMEALS [Renaplex 1 tab ] Tab PO HS Aspirin 81 Mg Tab.chew 1 Tab PO DAILY Lantus Solostar (Insulin Glargine,Hum.rec.anlog) 100 Unit/1 Ml Insuln.pen 24 Unit SQ QHS Atorvastatin Calcium 40 Mg Tablet 1 Tab PO QHS Allergies Allergies: Coded Allergies: oxycodone (Verified Allergy, Intermediate, Itching, 03/30/19) codeine (Verified Allergy, Mild, nausea, 03/30/19) ROS General: YES: Fatigue, Malaise PSYCHOLOGICAL ROS: YES: Anxiety Eyes: Yes Decreased vision ALLERGY AND IMMUNOLOGY: YES: Seasonal Allergies Respiratory: YES: Cough, Shortness of breath Cardiovascular: yes Palpitations Gastrointestinal: Yes Constipation Genitourinary: YES Other (ANURIA) Musculoskeletal: Yes Muscular Weakness Neurological: Yes Weakness Skin: Yes Dry Skin Physical Exam General: Alert, Oriented X3, Cooperative, No acute distress HEENT: Atraumatic, PERRLA, EOMI, Mucous membr. moist/pink Lungs: Clear to auscultation Heart: Regular rate Abdomen: Normal bowel sounds, Soft, No tenderness Extremities: No cyanosis Skin: No breakdown Neuro: Normal speech, Cranial nerves 3-12 NL Psych/Mental Status: Mental status NL, Mood NL MUSCULOSKELETAL: No joint tenderness, No deformity, No swelling Vitals VITALS Vital Signs Date Time Temp Pulse Resp B/P (MAP) Pulse Ox O2 Delivery O2 Flow Rate FiO2 09/01/19 11:28 94 Room Air 09/01/19 08:23 91 09/01/19 07:00 97.6 16 141/84 (103) 97.6 Labs Labs Laboratory Tests Test 08/31/19 20:35 08/31/19 20:41 09/01/19 07:31 09/01/19 11:39 White Blood Count 7.3 x10^3/uL (4.0-11.0) Red Blood Count 3.61 x10^6/uL (3.50-5.40) Hemoglobin 10.7 g/dL (12.0-15.5) Hematocrit 32.0 % (36.0-47.0) Mean Corpuscular Volume 89 fL (79-100) Mean Corpuscular Hemoglobin 30 pg (25-35) Mean Corpuscular Hemoglobin Concent 34 g/dL (31-37) Red Cell Distribution Width 18.0 % (11.5-14.5) Platelet Count 267 x10^3/uL (140-400) Neutrophils (%) (Auto) 70 % (31-73) Lymphocytes (%) (Auto) 21 % (24-48) Monocytes (%) (Auto) 6 % (0-9) Eosinophils (%) (Auto) 2 % (0-3) Basophils (%) (Auto) 1 % (0-3) Neutrophils # (Auto) 5.1 x10^3/uL (1.8-7.7) Lymphocytes # (Auto) 1.5 x10^3/uL (1.0-4.8) Monocytes # (Auto) 0.4 x10^3/uL (0.0-1.1) Eosinophils # (Auto) 0.2 x10^3/uL (0.0-0.7) Basophils # (Auto) 0.1 x10^3/uL (0.0-0.2) Prothrombin Time 12.6 SEC (11.7-14.0) Prothromb Time International Ratio 1.0 (0.8-1.1) Activated Partial Thromboplast Time 34 SEC (24-38) Sodium Level 140 mmol/L (136-145) Potassium Level 3.9 mmol/L (3.5-5.1) Chloride Level 100 mmol/L (98-107) Carbon Dioxide Level 28 mmol/L (21-32) Anion Gap 12 (6-14) Blood Urea Nitrogen 32 mg/dL (7-20) Creatinine 4.7 mg/dL (0.6-1.0) Estimated GFR (Cockcroft-Gault) 11.4 BUN/Creatinine Ratio 7 (6-20) Glucose Level 162 mg/dL (70-99) Calcium Level 9.8 mg/dL (8.5-10.1) Magnesium Level 2.1 mg/dL (1.8-2.4) Total Bilirubin 0.6 mg/dL (0.2-1.0) Aspartate Amino Transf (AST/SGOT) 10 U/L (15-37) Alanine Aminotransferase (ALT/SGPT) 24 U/L (14-59) Alkaline Phosphatase 75 U/L (46-116) Creatine Kinase 35 U/L (26-192) Troponin I Quantitative < 0.017 ng/mL (0.000-0.055) KX-Jyf-B-Type Natriuretic Peptide 4452 pg/mL (0-124) Total Protein 7.9 g/dL (6.4-8.2) Albumin 3.6 g/dL (3.4-5.0) Albumin/Globulin Ratio 0.8 (1.0-1.7) Lipase 376 U/L (73-393) Thyroid Stimulating Hormone (TSH) 1.941 uIU/mL (0.358-3.74) Bedside Troponin I 0.06 ng/ml (<0.08) Glucose (Fingerstick) 177 mg/dL (70-99) 192 mg/dL (70-99) Laboratory Tests Test 08/31/19 20:35 08/31/19 20:41 09/01/19 07:31 09/01/19 11:39 White Blood Count 7.3 x10^3/uL (4.0-11.0) Red Blood Count 3.61 x10^6/uL (3.50-5.40) Hemoglobin 10.7 g/dL (12.0-15.5) Hematocrit 32.0 % (36.0-47.0) Mean Corpuscular Volume 89 fL (79-100) Mean Corpuscular Hemoglobin 30 pg (25-35) Mean Corpuscular Hemoglobin Concent 34 g/dL (31-37) Red Cell Distribution Width 18.0 % (11.5-14.5) Platelet Count 267 x10^3/uL (140-400) Neutrophils (%) (Auto) 70 % (31-73) Lymphocytes (%) (Auto) 21 % (24-48) Monocytes (%) (Auto) 6 % (0-9) Eosinophils (%) (Auto) 2 % (0-3) Basophils (%) (Auto) 1 % (0-3) Neutrophils # (Auto) 5.1 x10^3/uL (1.8-7.7) Lymphocytes # (Auto) 1.5 x10^3/uL (1.0-4.8) Monocytes # (Auto) 0.4 x10^3/uL (0.0-1.1) Eosinophils # (Auto) 0.2 x10^3/uL (0.0-0.7) Basophils # (Auto) 0.1 x10^3/uL (0.0-0.2) Prothrombin Time 12.6 SEC (11.7-14.0) Prothromb Time International Ratio 1.0 (0.8-1.1) Activated Partial Thromboplast Time 34 SEC (24-38) Sodium Level 140 mmol/L (136-145) Potassium Level 3.9 mmol/L (3.5-5.1) Chloride Level 100 mmol/L (98-107) Carbon Dioxide Level 28 mmol/L (21-32) Anion Gap 12 (6-14) Blood Urea Nitrogen 32 mg/dL (7-20) Creatinine 4.7 mg/dL (0.6-1.0) Estimated GFR (Cockcroft-Gault) 11.4 BUN/Creatinine Ratio 7 (6-20) Glucose Level 162 mg/dL (70-99) Calcium Level 9.8 mg/dL (8.5-10.1) Magnesium Level 2.1 mg/dL (1.8-2.4) Total Bilirubin 0.6 mg/dL (0.2-1.0) Aspartate Amino Transf (AST/SGOT) 10 U/L (15-37) Alanine Aminotransferase (ALT/SGPT) 24 U/L (14-59) Alkaline Phosphatase 75 U/L (46-116) Creatine Kinase 35 U/L (26-192) Troponin I Quantitative < 0.017 ng/mL (0.000-0.055) GW-Ppw-A-Type Natriuretic Peptide 4452 pg/mL (0-124) Total Protein 7.9 g/dL (6.4-8.2) Albumin 3.6 g/dL (3.4-5.0) Albumin/Globulin Ratio 0.8 (1.0-1.7) Lipase 376 U/L (73-393) Thyroid Stimulating Hormone (TSH) 1.941 uIU/mL (0.358-3.74) Bedside Troponin I 0.06 ng/ml (<0.08) Glucose (Fingerstick) 177 mg/dL (70-99) 192 mg/dL (70-99) Assessment/Plan Assessment/Plan IMP AFIB RVR ESRD ANEMIA D M II HTN PLAN HD TTS [facility] WHEN NEEDED CARDIOLOGY EVAL AND TX RADHA TOURE MD Sep 01, 2019 11:56
--- NOTE | 2019-09-01 13:37 | NUR ---
SS following for discharge planning. SS reviewed pt chart and discussed with pt RN. Pt is from home and is currently on room air. Pt had ECHO today. Per RN, pt to be set up with outpatient event monitor and stress test. Discharge plan is to home when ready. SS will continue to follow for discharge planning.
--- NOTE | 2019-09-01 15:45 | CARD ---
MR#: [id number] Date of Study: 09/01/2019 Ordering Physician: BLAZE GUZMAN, Referring Physician: BLAZE GUZMAN Tech: Lanie Willson MELISSA APPROVED REPORT EXAM: Two-dimensional and M-mode echocardiogram with Doppler and color Doppler. Other Information Quality : Good Rhythm : NSR INDICATION Atrial Fibrillation RISK FACTORS Hypertension Obesity Hyperlipidemia Diabetes 2D DIMENSIONS RVDd3.0 (2.9-3.5cm)Left Atrium(2D)4.7 (1.6-4.0cm) IVSd0.9 (0.7-1.1cm)Aortic Root(2D)2.9 (2.0-3.7cm) LVDd5.2 (3.9-5.9cm)LVOT Diameter2.0 (1.8-2.4cm) PWd1.1 (0.7-1.1cm)FS (%) 26.0 % LVEF(%)52.0 (>50%) Aortic Valve AoV Peak Alexis.147.0cm/Jade Peak GR.9.0mmHg AO Mean GR.5mmHgAVA (VTI)2.00cm2 Tricuspid Valve TR P. [id number] [id number] TR Peak Gr.[id number] LEFT VENTRICLE The Left Ventricle is mildly dilated. There is normal left ventricular wall thickness. Left ventricle systolic function is normal. The Ejection Fraction is 50-55%. There is normal LV segmental wall live on. Transmitral Doppler flow pattern is Grade I-abnormal relaxation pattern. RIGHT VENTRICLE The right ventricle is normal size. The right ventricular systolic function is normal. ATRIA The left atrium is moderately dilated. The right atrium size is normal. The interatrial septum is int act with no evidence for an atrial septal defect or patent foramen ovale as noted on 2-D or Doppler i maging. AORTIC VALVE The aortic valve is not well visualized. Doppler and Color Flow revealed no significant aortic regurg itation. There is no significant aortic valvular stenosis. MITRAL VALVE The mitral valve is calcified but opens well. There is no evidence of mitral valve prolapse. There is no mitral valve stenosis. Doppler and Color-flow revealed moderate mitral regurgitation. TRICUSPID VALVE The tricuspid valve is normal in structure and function. Doppler and Color Flow revealed mild tricusp id regurgitation. The PA pressure was estimated at 54 mmHg. There is no tricuspid valve stenosis. PULMONIC VALVE The pulmonic valve is not well visualized. Doppler and Color Flow revealed no pulmonic valvular regur gitation. There is no pulmonic valvular stenosis. GREAT VESSELS The aortic root is normal in size. The ascending aorta is normal in size. The IVC is normal in size a nd collapses >50% with inspiration. PERICARDIAL EFFUSION There is a trace circumferential pericardial effusion with no hemodynamic significance. Critical Notification Critical Value: No <Conclusion> The Left Ventricle is mildly dilated. Left ventricle systolic function is normal. The Ejection Fraction is 50-55%. The left atrium is moderately dilated. Doppler and Color Flow revealed no significant aortic regurgitation. There is no significant aortic valvular stenosis. Doppler and Color-flow revealed moderate mitral regurgitation. Doppler and Color Flow revealed mild tricuspid regurgitation. The PA pressure was estimated at 54 mmHg. There is a trace circumferential pericardial effusion with no hemodynamic significance. Signed by : Mayo Osman MD Electronically Approved : 09/01/2019 15:44:58
[2019-09-01] MEDS ORDERED: SEVELAMER CARBONATE 800 MG TABLET. PO SCH (17:00)
[2019-09-01] MEDS ORDERED: METO50TA6 PO (17:20)
--- NOTE | 2019-09-01 17:24 | PDOC3 ---
Discharge Summary Visit Information Date of Admission: Sep 01, 2019 Date of Discharge: Sep 01, 2019 Admitting Diagnosis Comment: Assessment/Plan Atrial fibrillation with rapid ventricular response converted now to normal sinus rhythm End-stage renal disease on hemodialysis Diabetes mellitus type 2 insulin requiring History of anxiety History of DVT Normocytic anemia of chronic disease Final Diagnosis Problems Medical Problems: (1) Atrial fibrillation with RVR resolved Status: Acute End-stage renal disease on hemodialysis Diabetes mellitus type 2 insulin requiring History of anxiety History of DVT Normocytic anemia of chronic disease Brief Hospital Course Allergies Allergies Coded Allergies Type Severity Reaction Last Updated Verified oxycodone Allergy Intermediate Itching 03/30/19 Yes codeine Allergy Mild nausea 03/30/19 Yes Vital Signs Vital Signs Date Time Temp Pulse Resp B/P (MAP) Pulse Ox O2 Delivery O2 Flow Rate FiO2 09/01/19 15:00 97.5 84 16 153/86 (108) 95 Room Air 97.5 Lab Results Laboratory Tests Test 08/31/19 20:35 08/31/19 20:41 09/01/19 07:31 09/01/19 11:39 White Blood Count 7.3 x10^3/uL (4.0-11.0) Red Blood Count 3.61 x10^6/uL (3.50-5.40) Hemoglobin 10.7 g/dL (12.0-15.5) Hematocrit 32.0 % (36.0-47.0) Mean Corpuscular Volume 89 fL (79-100) Mean Corpuscular Hemoglobin 30 pg (25-35) Mean Corpuscular Hemoglobin Concent 34 g/dL (31-37) Red Cell Distribution Width 18.0 % (11.5-14.5) Platelet Count 267 x10^3/uL (140-400) Neutrophils (%) (Auto) 70 % (31-73) Lymphocytes (%) (Auto) 21 % (24-48) Monocytes (%) (Auto) 6 % (0-9) Eosinophils (%) (Auto) 2 % (0-3) Basophils (%) (Auto) 1 % (0-3) Neutrophils # (Auto) 5.1 x10^3/uL (1.8-7.7) Lymphocytes # (Auto) 1.5 x10^3/uL (1.0-4.8) Monocytes # (Auto) 0.4 x10^3/uL (0.0-1.1) Eosinophils # (Auto) 0.2 x10^3/uL (0.0-0.7) Basophils # (Auto) 0.1 x10^3/uL (0.0-0.2) Prothrombin Time 12.6 SEC (11.7-14.0) Prothromb Time International Ratio 1.0 (0.8-1.1) Activated Partial Thromboplast Time 34 SEC (24-38) Sodium Level 140 mmol/L (136-145) Potassium Level 3.9 mmol/L (3.5-5.1) Chloride Level 100 mmol/L (98-107) Carbon Dioxide Level 28 mmol/L (21-32) Anion Gap 12 (6-14) Blood Urea Nitrogen 32 mg/dL (7-20) Creatinine 4.7 mg/dL (0.6-1.0) Estimated GFR (Cockcroft-Gault) 11.4 BUN/Creatinine Ratio 7 (6-20) Glucose Level 162 mg/dL (70-99) Calcium Level 9.8 mg/dL (8.5-10.1) Magnesium Level 2.1 mg/dL (1.8-2.4) Total Bilirubin 0.6 mg/dL (0.2-1.0) Aspartate Amino Transf (AST/SGOT) 10 U/L (15-37) Alanine Aminotransferase (ALT/SGPT) 24 U/L (14-59) Alkaline Phosphatase 75 U/L (46-116) Creatine Kinase 35 U/L (26-192) Troponin I Quantitative < 0.017 ng/mL (0.000-0.055) UM-Vfq-G-Type Natriuretic Peptide 4452 pg/mL (0-124) Total Protein 7.9 g/dL (6.4-8.2) Albumin 3.6 g/dL (3.4-5.0) Albumin/Globulin Ratio 0.8 (1.0-1.7) Lipase 376 U/L (73-393) Thyroid Stimulating Hormone (TSH) 1.941 uIU/mL (0.358-3.74) Bedside Troponin I 0.06 ng/ml (<0.08) Glucose (Fingerstick) 177 mg/dL (70-99) 192 mg/dL (70-99) Laboratory Tests Test 08/31/19 20:35 08/31/19 20:41 09/01/19 07:31 09/01/19 11:39 White Blood Count 7.3 x10^3/uL (4.0-11.0) Red Blood Count 3.61 x10^6/uL (3.50-5.40) Hemoglobin 10.7 g/dL (12.0-15.5) Hematocrit 32.0 % (36.0-47.0) Mean Corpuscular Volume 89 fL (79-100) Mean Corpuscular Hemoglobin 30 pg (25-35) Mean Corpuscular Hemoglobin Concent 34 g/dL (31-37) Red Cell Distribution Width 18.0 % (11.5-14.5) Platelet Count 267 x10^3/uL (140-400) Neutrophils (%) (Auto) 70 % (31-73) Lymphocytes (%) (Auto) 21 % (24-48) Monocytes (%) (Auto) 6 % (0-9) Eosinophils (%) (Auto) 2 % (0-3) Basophils (%) (Auto) 1 % (0-3) Neutrophils # (Auto) 5.1 x10^3/uL (1.8-7.7) Lymphocytes # (Auto) 1.5 x10^3/uL (1.0-4.8) Monocytes # (Auto) 0.4 x10^3/uL (0.0-1.1) Eosinophils # (Auto) 0.2 x10^3/uL (0.0-0.7) Basophils # (Auto) 0.1 x10^3/uL (0.0-0.2) Prothrombin Time 12.6 SEC (11.7-14.0) Prothromb Time International Ratio 1.0 (0.8-1.1) Activated Partial Thromboplast Time 34 SEC (24-38) Sodium Level 140 mmol/L (136-145) Potassium Level 3.9 mmol/L (3.5-5.1) Chloride Level 100 mmol/L (98-107) Carbon Dioxide Level 28 mmol/L (21-32) Anion Gap 12 (6-14) Blood Urea Nitrogen 32 mg/dL (7-20) Creatinine 4.7 mg/dL (0.6-1.0) Estimated GFR (Cockcroft-Gault) 11.4 BUN/Creatinine Ratio 7 (6-20) Glucose Level 162 mg/dL (70-99) Calcium Level 9.8 mg/dL (8.5-10.1) Magnesium Level 2.1 mg/dL (1.8-2.4) Total Bilirubin 0.6 mg/dL (0.2-1.0) Aspartate Amino Transf (AST/SGOT) 10 U/L (15-37) Alanine Aminotransferase (ALT/SGPT) 24 U/L (14-59) Alkaline Phosphatase 75 U/L (46-116) Creatine Kinase 35 U/L (26-192) Troponin I Quantitative < 0.017 ng/mL (0.000-0.055) TK-Ikh-O-Type Natriuretic Peptide 4452 pg/mL (0-124) Total Protein 7.9 g/dL (6.4-8.2) Albumin 3.6 g/dL (3.4-5.0) Albumin/Globulin Ratio 0.8 (1.0-1.7) Lipase 376 U/L (73-393) Thyroid Stimulating Hormone (TSH) 1.941 uIU/mL (0.358-3.74) Bedside Troponin I 0.06 ng/ml (<0.08) Glucose (Fingerstick) 177 mg/dL (70-99) 192 mg/dL (70-99) Brief Hospital Course HISTORY OF PRESENT ILLNESS HISTORY OF PRESENT ILLNESS This is a pleasant 63 yo female admitted for complains of palpitations. Reports that Friday she had this piercing chest pain and also some SOA. She gets dialysis Friday, , and Friday and it appears that in the last month she gets this palpitations mostly during HD. Reports no nausea, vomiting or diarrhea and no recent fever or chills and no intractable coughing. No hx of arrhythmias or CAD. No hx of VTE but she did have clots in her dialysis line treated with blood thinner in the past. She has HTN, HLP and DM2. She started HD 3 yrs ago due to PKD and reports that she is trying to get to the transplant list. Her last stress test was 3 yrs ago. She does not see any passenger brakeman. She also has YVON but could not tolerate CPAP in the past. To add she takes coreg and hold her morning dose during dialysis days. Patient was placed on a Cardizem drip during her hospital stay which was quite brief, the patient responded quite well and responded to beta-luis f as well she converted back to normal sinus rhythm and echocardiogram was done with the following results<Conclusion> The Left Ventricle is mildly dilated. Left ventricle systolic function is normal. The Ejection Fraction is 50-55%. The left atrium is moderately dilated. Doppler and Color Flow revealed no significant aortic regurgitation. There is no significant aortic valvular stenosis. Doppler and Color-flow revealed moderate mitral regurgitation. Doppler and Color Flow revealed mild tricuspid regurgitation. The PA pressure was estimated at 54 mmHg. There is a trace circumferential pericardial effusion with no hemodynamic significance. Signed by : Mayo Osman MD Electronically Approved : 09/01/2019 15:44:58 She was deemed appropriate for discharge from the cardiological standpoint of view, and the patient does not feel fluid overloaded and her laboratory data seems to be at baseline as far as her electrolytes go Changes to her medications consisted on switching from carvedilol to metoprolol, no other recommendations noted at the time of this note. technical assistance consultant will be visiting with the patient hopefully later this afternoon, signs and symptoms of concern and when to seek medical attention was discussed with the patient prior to discharge Discharge Information Condition at Discharge: Improved Follow Up: Weeks Disposition/Orders: D/C to Home Scheduled Aspirin (Aspirin) 81 Mg Tab.chew, 1 TAB PO DAILY for anti coag, #30 Ref 3 (Reported) Entered as Reported by: JOSE BREWER on 04/15/18319 Last Action: Continued on 09/01/19755 by KEZIA SMITH MD Atorvastatin Calcium (Atorvastatin Calcium) 40 Mg Tablet, 1 TAB PO QHS for cholesterol, #90 Ref 3 (Reported) Entered as Reported by: JOSE BREWER on 04/15/18319 Last Action: Continued on 09/01/19755 by KEZIA SMITH MD Citalopram Hydrobromide (Citalopram Hbr) 20 Mg Tablet, 20 MG PO DAILY for anxiety, (Reported) Entered as Reported by: MIRNA QUIGLEY on 09/01/19752 Last Action: Continued on 09/01/19755 by KEZIA SMITH MD Insulin Glargine,Hum.rec.anlog (Lantus Solostar) 100 Unit/1 Ml Insuln.pen, 24 UNIT SQ QHS for diabetes, #15 Ref 5 (Reported) Entered as Reported by: JOSE BREWER on 04/15/18319 Last Action: Converted on 09/01/19755 by KEZIA SMITH MD Insulin Lispro (Humalog) 100 Unit/1 Ml Cartridge, 10 UNIT SQ TIDWMEALS for diabetes, (Reported) Entered as Reported by: JOSE BREWER on 04/15/18319 Last Action: Converted on 09/01/19755 by KEZIA SMITH MD Metoprolol Tartrate (Metoprolol Tartrate) 50 Mg Tablet, 50 MG PO BID for rate control for 30 Days, #60 Prescribed by: KEZIA SMITH MD on 09/01/190 Sucroferric Oxyhydroxide (Velphoro) 500 Mg Tab.chew, 500 MG PO TIDAC for binder, (Reported) Entered as Reported by: MIRNA QUIGLEY on 09/01/19752 Last Action: Converted on 09/01/19755 by KEZIA SMITH MD [Renaplex 1 tab ] , TAB PO HS, (Reported) Entered as Reported by: JOSE BREWER on 04/15/18319 Last Action: Edited on 09/01/19752 by MIRNA QUIGLEY Discontinued Medications Carvedilol (Carvedilol ) 12.5 Mg Tablet, 12.5 MG PO BIDWMEALS for CARDIAC, (Reported) Entered as Reported by: JOSE BREWER on 04/15/18319 Last Action: Continued on 09/01/19755 by KEZIA SMITH MD Justicifation of Admission Dx: Justifications for Admission: Justification of Admission Dx: Yes KEZIA SMITH MD Sep 01, 2019 17:24
[2019-09-01 17:28] LABS: CHOLESTEROL/HDL RATIO 3.8
--- NOTE | 2019-09-01 19:20 | NUR ---
Discharge: Event monitor provided by [facility] cardiology. Event monitor placed by nurse prior to discharge. Discharge teaching verbal and written. Reviewed medications, follow-up, ECHO, Stress test, CP, A fib, Dialysis, ect. Patient verbalized understanding. All belongings with patient. [facility] pharmacy closed. Metoprolol given prior to discharge.
[2019-09-01] MEDS ORDERED: METOPROLOL TART IMMED RELEASE 50 MG TABLET. PO SCH (21:00)
[2019-09-01] MEDS ORDERED: ATORVASTATIN CALCIUM 40 MG TABLET. PO SCH (21:00)
[2019-09-01] MEDS ORDERED: INSULIN GLARGINE SYRINGE. SQ SCH (21:00)
== END 2019-09-01 19:25 | disposition home or self-care (01) | DRG 308 ==
LOC: ER 19:45 → 2 SOUTH 21:19 → OBSVTOIN 21:19
PROVIDERS: ADMIT Family Medicine; ATTEND Family Medicine
DX: I48.0 Paroxysmal atrial fibrillation (principal); N18.6 End stage renal disease; I12.0 Hypertensive chronic kidney disease with stage 5 chronic kidney disease or end stage renal disease; Q61.2 Polycystic kidney, adult type; D63.8 Anemia in other chronic diseases classified elsewhere; E11.22 Type 2 diabetes mellitus with diabetic chronic kidney disease; E78.00 Pure hypercholesterolemia, unspecified; E78.5 Hyperlipidemia, unspecified; K52.9 Noninfective gastroenteritis and colitis, unspecified; M79.7 Fibromyalgia; Z79.4 Long term (current) use of insulin; Z82.49 Family history of ischemic heart disease and other diseases of the circulatory system; Z83.3 Family history of diabetes mellitus; Z85.3 Personal history of malignant neoplasm of breast; Z86.718 Personal history of other venous thrombosis and embolism; Z90.49 Acquired absence of other specified parts of digestive tract; Z90.710 Acquired absence of both cervix and uterus; Z99.2 Dependence on renal dialysis; F41.9 Anxiety disorder, unspecified; M19.90 Unspecified osteoarthritis, unspecified site; Z88.8 Allergy status to other drugs, medicaments and biological substances; Z79.01 Long term (current) use of anticoagulants
CPT/HCPCS: 36415; 71045; 80053; 80061; 82550; 82962; 83690; 83735; 83880; 84443; 84484; 85025; 85610; 85730; 93005; 93306; 96365; 96366; 96376; 99285; J1644; J1815; J3490; G0378